=== PATIENT | female | born 1990 | race Caucasian/White ===

== ENCOUNTER 2019-02-23 04:07 | Inpatient (IN) | payer BC ==
[2019-02-23] MEDS ORDERED: Lidocaine 1% 50 ML MDV INJECT PRN (07:40)
[2019-02-23] MEDS ORDERED: Sodium Chloride 0.9% 10 ML Syringe FLUSH PRN (07:40)
[2019-02-23] MEDS ORDERED: Nalbuphine 10 MG/1 ML Vial IVPUSH PRN (07:40)
[2019-02-23] MEDS ORDERED: Oxytocin/Lactated Ringers 10 UNIT/1,000 ML BAG IV SCH ×2 (07:45)
[2019-02-23] MEDS: Lactated Ringers 1,000 ML IV SCH ×3 (08:00→15:00)
--- NOTE | 2019-02-23 09:26 | PCM.LDHP ---
<Anette Huntley - Last Filed: 02/23/19 11:12> L&D History of Present Illness - General Date of Service: 02/23/19 (Kendell is a 28-year-old 2 para 1001 white female is admitted on 02/23/2019 at 39 weeks gestational age for induction of labor. APOLINAR is 03/02/2019.) Admit Problem/Dx: Patient Status Order with Admit Dx/Problem 02/23/19 07:40 Patient Status [ADT] Routine Admission Diagnosis/Problem Admission Diagnosis/Problem 02/23/19 10:04 Induction of Labor Source of Information: Patient, Significant Other History Limitations: Reports: No Limitations - History of Present Illness Introduction:: Kendell is a 28 year-old female 2 para 1001white female who is admitted on 02/23/2019 at 39 weeks gestational age with an APOLINAR of 03/02/2019 for induction of labor. Patient has had a previous vaginal delivery in May of 2012 where she was induced at 39 weeks. She will have an IV in place to begin Pitocin therapy with have monitoring. 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 APOLINAR 03/02/2019 as determined by an ultrasound done at 7-0 weeks on 07/15/2018. This is supported by another ultrasound performed on 10/16/2018 and her LMP on 05/26/2018. Past obstetric history: Patient had menarche at age 15. Cycles every 28 days. No control being used at time of conception. Last menstrual periods started on 05/26/2019 and was definite. 1. Vaginal delivery in May 2012. laboratory testing: Blood type is A +, with negative antibody screening.First labs were HGB was 12.5, Platelets 290. Rubetlla immune. RPR nonreactive. Second trimester labs HBG was 11.0, platelets 255, Diabetes screen was 94. Group B strep negative. Location, : Reports: Abdomen, Lower back Quality: Reports: Ache, Pressure Severity: Moderate Pain Score: 6 (Patient would like an epidural later during laboring process.) Improves with: Reports: Rest Worsens with: Reports: None - Related Data Allergies/Adverse Reactions: Allergies Allergy/AdvReac Type Severity Reaction Status Date / Time amoxicillin Allergy Difficulty Verified 02/23/19 07:39 Swallowing ceclor Allergy Cannot Uncoded 02/23/19 07:39 Remember Home Medications: Home Meds PNV95/Ferrous Fumarate/FA [ Vitamin Tablet] 1 each PO DAILY 02/23/19 [ History] Past Medical History HEENT History: Reports: Impaired Vision Other HEENT History: wears glasses Genitourinary History: Reports: None 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 - Past Surgical History HEENT Surgical History: Reports: Naso-Sinus Surgery, Oral Surgery, Tonsillectomy Other HEENT Surgeries/Procedures: wisdom teeth Female Surgical History: Reports: Endometrial Ablation Social & Family History - Family History Other Family History: Father - alive and well. Mother - alive and well. Paternal grandfather - pancreatic cancer age 80s. Paternal grandmother - unknown cancer age 70s. Maternal grandfather - [place] age 60s. Maternal grandmother - Alive and well. 1 Child - alive and well. - Tobacco Use Smoking Status *Q: Current Every Day Smoker Tobacco Use Within Last Twelve Months: Cigarettes Packs/Tins Daily: 0.2 Used Tobacco, but Quit: No Tobacco Use Comment: Patient normally smokes 1 pack of cigarettes every 2 days. During this she has cut back to 3-4 cigarettes a day. There is no smoking inside of the home, she does go outside. Second Hand Smoke Exposure: No - Caffeine Use Caffeine Use: Reports: None - Alcohol Use Alcohol Use Comment: History of social alcohol use, has not had alcohol during . - Recreational Drug Use Recreational Drug Use: No Drug Use in Last 12 Months: No - Sexual History Sexual History: Reports: Single Partner () - Living Situation & Occupation Social History Comment: Patient lives at home with biological child and step-child. 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 There are no pets at the home. H&P Review of Systems - Review of Systems: Free Text/Narrative: In general patient has no complaints. Baby has been active. General: Reports: No Symptoms HEENT: Reports: No Symptoms Pulmonary: Reports: No Symptoms Cardiovascular: Reports: No Symptoms Gastrointestinal: Reports: No Symptoms Genitourinary: Reports: No Symptoms Musculoskeletal: Reports: No Symptoms Skin: Reports: No Symptoms Psychiatric: Reports: No Symptoms Neurological: Reports: No Symptoms L&D Exam - Exam Exam: See Below - Vital Signs Vital Signs: Last Vital Signs Temp 96.8 F 02/23/19 07:40 Pulse 79 02/23/19 08:33 Resp 16 02/23/19 07:40 BP 121/65 02/23/19 08:33 Pulse Ox Weight: 102.058 kg - OB Specific Fundal Height In cm: 39 Contraction Intensity: Mild to Moderate Movement: Active Heart Tones: Present Heart Tones per Min: 120 Presentation: Vertex - Zheng Score Zheng Score Dilation: 3-4 cm - Exam General: Alert, Oriented HEENT: PERRLA, Conjunctiva Clear, EACs Clear, EOMI, Hearing Intact, Mucosa Moist & [place], Nares Patent, Normal Nasal Septum, Posterior Pharynx Clear, TMs Clear Neck: Supple, Trachea Midline Lungs: Clear to Auscultation, Normal Respiratory Effort Cardiovascular: Regular Rate, Regular Rhythm GI/Abdominal Exam: Normal Bowel Sounds, Soft, Non-Tender, No Organomegaly, No Distention, No Abnormal Bruit, No Mass, Pelvis Stable Genitourinary: Normal external exam, Normal bimanual exam, Normal speculum exam Back Exam: Normal Inspection, Full Range of Motion Extremities: Normal Inspection, Normal Range of Motion, Non-Tender, No Pedal Edema, Normal Capillary Refill Skin: Warm, Dry, Intact Neurological: Cranial Nerves Intact, Reflexes Equal Bilateral Psychiatric: Alert, Normal Affect, Normal Mood - Patient Data Lab Results Last 24 hrs: Laboratory Results - last 24 hr 02/23/19 Range/Units 07:52 WBC 15.58 H (3.98-10.04) K/mm3 RBC 4.04 (3.98-5.22) M/mm3 Hgb 12.1 (11.2-15.7) gm/L Hct 35.8 (34.1-44.9) % MCV 88.6 (79.4-94.8) fl MCH 30.0 (25.6-32.2) pg MCHC 33.8 (32.2-35.5) g/dl RDW Std Deviation 45.4 (36.4-46.3) fL Plt Count 252 (182-369) K/mm3 MPV 9.1 L (9.4-12.3) fl Neut % (Auto) 76.2 H (34.0-71.1) % Lymph % (Auto) 16.3 L (19.3-51.7) % Hendricks % (Auto) 5.6 (4.7-12.5) % Eos % (Auto) 1.1 (0.7-5.8) Baso % (Auto) 0.1 (0.1-1.2) % Neut # (Auto) 11.88 H (1.56-6.13) K/mm3 Lymph # (Auto) 2.54 (1.18-3.74) K/mm3 Hendricks # (Auto) 0.87 H (0.24-0.36) K/mm3 Eos # (Auto) 0.17 (0.04-0.36) K/mm3 Baso # (Auto) 0.01 (0.01-0.08) K/mm3 Manual Slide Review Normal smear Result Diagrams: 02/23/19 07:52 Problem List Initiated/Reviewed/Updated: Yes Orders Last 24hrs: Active Orders 24 hr Category Date Time Status Patient Status [ADT] Routine ADT 02/23/19 07:40 Active Activity as Tolerated [RC] PFP Care 02/23/19 07:40 Active Communication Order [RC] ASDIRECTED Care 02/23/19 07:40 Active Notify Provider [RC] PFP Care 02/23/19 07:40 Active Notify Provider [RC] PRN Care 02/23/19 07:40 Active Peripheral IV Care [RC] . DIRECTED Care 02/23/19 07:40 Active Vital Signs [RC] PER UNIT ROUTINE Care 02/23/19 07:40 Active Regular Diet [DIET] Diet 02/23/19 Breakfast Active RAPID PLASMA REAGIN,RPR [CHEM] Routine Lab 02/23/19 07:52 Received Lactated Ringers [Ringers, Lactated] 1,000 ml Med 02/23/19 07:45 Active IV ASDIRECTED Lidocaine 1% [Xylocaine 1%] Med 02/23/19 07:40 Active 50 ml INJECT ONETIME PRN Nalbuphine [Nubain] Med 02/23/19 07:40 Active 10 mg IVPUSH Q2H PRN Oxytocin/Lactated Ringers [Pitocin in LR 10 Units/1,000 Med 02/23/19 07:45 Active ML] 10 unit in 1,000 ml IV .CONTINUOUS Oxytocin/Lactated Ringers [Pitocin in LR 10 Units/1,000 Med 02/23/19 07:45 Active ML] 10 unit in 1,000 ml IV TITRATE Sodium Chloride 0.9% [Saline Flush] Med 02/23/19 07:40 Active 10 ml FLUSH ASDIRECTED PRN Electronic Heart Tones Ext w TOCO [WOMSER] Ot 02/23/19 07:40 Ordered Routine Electronic Heart Tones Internal [WOMSER] Per Unit Ot 02/23/19 07:40 Ordered Routine Peripheral IV Insertion Adult [OM.PC] Routine Ot 02/23/19 07:40 Ordered Resuscitation Status Routine Resus Stat 02/23/19 07:40 Ordered Medication Orders Lactated Ringer's (Ringers, Lactated) 1,000 mls @ 100 mls/hr IV ASDIRECTED MANUELITO Last Admin: 02/23/19 08:00 Dose: 100 mls/hr Oxytocin/Lactated Ringer's (Pitocin In Lr 10 Units/1,000 Ml) 10 unit in 1,000 mls @ 12 mls/hr IV TITRATE MANUELITO; Protocol Last Titration: 02/23/19 08:51 Dose: 6 munits/min, 36 mls/hr Titration: 02/23/19 08:30 Dose: 4 munits/min, 24 mls/hr Admin: 02/23/19 08:05 Dose: 2 munits/min, 12 mls/hr Oxytocin/Lactated Ringer's (Pitocin In Lr 10 Units/1,000 Ml) 10 unit in 1,000 mls @ 500 mls/hr IV .CONTINUOUS MANUELITO Lidocaine HCl (Xylocaine 1%) 50 ml INJECT ONETIME PRN PRN Reason: Breakthrough Pain Nalbuphine HCl (Nubain) 10 mg IVPUSH Q2H PRN PRN Reason: Pain Sodium Chloride (Saline Flush) 10 ml FLUSH ASDIRECTED PRN PRN Reason: Keep Vein Open Assessment/Plan Comment:: 1. 39 weeks intrauterine admitted for induction of labor. 2. History of prvious vaginal delivery in May 2012. 3. Group B strep screen negative. 4. Patient does not plan to breastfeed but would like to pump when she gets home , she is interested in talking to a counselor. 5. Epidural analgesia in labor. 6. Rubella immune 7. RPR nonreactive Plan: 1. We will attempt induction of labor with Pitocin and rupture of membranes. 2. Epidural when necessary for analgesia per patient desire. 3. IV access 4. Near continuous electronic heart rate monitoring during labor. 4. Anticipate normal spontaneous vaginal delivery. <Matthew Weaver - Last Filed: 02/23/19 18:44> L&D History of Present Illness - General Admit Problem/Dx: Patient Status Order with Admit Dx/Problem 02/23/19 07:40 Patient Status [ADT] Routine Admission Diagnosis/Problem Admission Diagnosis/Problem H&P Review of Systems - Review of Systems: Review Of Systems: See Below L&D Exam - Exam Exam: See Below - Vital Signs Vital Signs: Last Vital Signs Temp 36.0 C 02/23/19 07:40 Pulse 81 02/23/19 13:31 Resp 16 02/23/19 10:23 BP 100/54 L 02/23/19 13:31 Pulse Ox 100 02/23/19 13:00 - Patient Data Lab Results Last 24 hrs: Laboratory Results - last 24 hr 02/23/19 Range/Units 07:52 WBC 15.58 H (3.98-10.04) K/mm3 RBC 4.04 (3.98-5.22) M/mm3 Hgb 12.1 (11.2-15.7) gm/L Hct 35.8 (34.1-44.9) % MCV 88.6 (79.4-94.8) fl MCH 30.0 (25.6-32.2) pg MCHC 33.8 (32.2-35.5) g/dl RDW Std Deviation 45.4 (36.4-46.3) fL Plt Count 252 (182-369) K/mm3 MPV 9.1 L (9.4-12.3) fl Neut % (Auto) 76.2 H (34.0-71.1) % Lymph % (Auto) 16.3 L (19.3-51.7) % Hendricks % (Auto) 5.6 (4.7-12.5) % Eos % (Auto) 1.1 (0.7-5.8) Baso % (Auto) 0.1 (0.1-1.2) % Neut # (Auto) 11.88 H (1.56-6.13) K/mm3 Lymph # (Auto) 2.54 (1.18-3.74) K/mm3 Hendricks # (Auto) 0.87 H (0.24-0.36) K/mm3 Eos # (Auto) 0.17 (0.04-0.36) K/mm3 Baso # (Auto) 0.01 (0.01-0.08) K/mm3 Manual Slide Review Normal smear Result Diagrams: 02/23/19 07:52 Problem List Initiated/Reviewed/Updated: Yes Orders Last 24hrs: Active Orders 24 hr Category Date Time Status Patient Status [ADT] Routine ADT 02/23/19 07:40 Active Activity as Tolerated [RC] PFP Care 02/23/19 07:40 Active Communication Order [RC] ASDIRECTED Care 02/23/19 07:40 Active Insert [place] Catheter [Insert Urinary Catheter] [OM.PC] Care 02/23/19 14:30 Ordered Q24H Notify Provider [RC] ASDIRECTED Care 02/23/19 10:07 Active Notify Provider [RC] PFP Care 02/23/19 07:40 Active Notify Provider [RC] PRN Care 02/23/19 07:40 Active Peripheral IV Care [RC] Q2HR Care 02/23/19 07:40 Active Urinary Catheter Assessment [RC] ASDIRECTED Care 02/23/19 14:30 Active Urinary Catheter Removal [RC] Per Unit Routine Care 02/23/19 14:30 Active Vital Signs [RC] PER UNIT ROUTINE Care 02/23/19 07:40 Active Regular Diet [DIET] Diet 02/23/19 Breakfast Active RAPID PLASMA REAGIN,RPR [CHEM] Routine Lab 02/23/19 07:52 Received Bupivacaine/fentaNYL/NS [fentaNYL/Bupivacaine/NS 2 MCG- Med 02/23/19 10:07 Active 0.125% 100 ML] 100 ml EPIDUR ASDIRECTED PRN Lactated Ringers [Ringers, Lactated] 1,000 ml Med 02/23/19 07:45 Active IV ASDIRECTED Lidocaine 1% [Xylocaine 1%] Med 02/23/19 07:40 Active 50 ml INJECT ONETIME PRN Nalbuphine [Nubain] Med 02/23/19 07:40 Active 10 mg IVPUSH Q2H PRN Oxytocin/Lactated Ringers [Pitocin in LR 10 Units/1,000 Med 02/23/19 07:45 Active ML] 10 unit in 1,000 ml IV .CONTINUOUS Oxytocin/Lactated Ringers [Pitocin in LR 10 Units/1,000 Med 02/23/19 07:45 Active ML] 10 unit in 1,000 ml IV TITRATE Sodium Chloride 0.9% [Saline Flush] Med 02/23/19 07:40 Active 10 ml FLUSH ASDIRECTED PRN diphenhydrAMINE [Benadryl] Med 02/23/19 10:07 Active 25 mg IVPUSH Q6H PRN ePHEDrine [ePHEDrine sulfate] Med 02/23/19 10:07 Active 5 mg IVPUSH ASDIRECTED PRN fentaNYL [Sublimaze] Med 02/23/19 10:07 Active 100 mcg EPIDUR Q3H PRN Electronic Heart Tones Ext w TOCO [WOMSER] Oth 02/23/19 07:40 Ordered Routine Electronic Heart Tones Internal [WOMSER] Per Unit Oth 02/23/19 07:40 Ordered Routine Peripheral IV Insertion Adult [OM.PC] Routine Oth 02/23/19 07:40 Ordered Resuscitation Status Routine Resus Stat 02/23/19 07:40 Ordered Medication Orders Diphenhydramine HCl (Benadryl) 25 mg IVPUSH Q6H PRN PRN Reason: pruritis Ephedrine Sulfate (Ephedrine Sulfate) 5 mg IVPUSH ASDIRECTED PRN PRN Reason: Hypotension Fentanyl (Sublimaze) 100 mcg EPIDUR Q3H PRN PRN Reason: Pain Last Admin: 02/23/19 12:56 Dose: 100 mcg Fentanyl/Bupivacaine HCl (Fentanyl/Bupivacaine/Ns 2 Mcg-0.125% 100 Ml) 100 ml EPIDUR ASDIRECTED PRN PRN Reason: Pain Last Admin: 02/23/19 12:57 Dose: 100 ml Lactated Ringer's (Ringers, Lactated) 1,000 mls @ 100 mls/hr IV ASDIRECTED MANUELITO Last Admin: 02/23/19 15:00 Dose: 125 mls/hr Infusion: 02/23/19 14:05 Dose: 999 mls/hr Admin: 02/23/19 13:04 Dose: 999 mls/hr Infusion: 02/23/19 12:37 Dose: 250 mls/hr Infusion: 02/23/19 12:00 Dose: 999 mls/hr Admin: 02/23/19 08:00 Dose: 100 mls/hr Oxytocin/Lactated Ringer's (Pitocin In Lr 10 Units/1,000 Ml) 10 unit in 1,000 mls @ 12 mls/hr IV TITRATE MANUELITO; Protocol Last Titration: 02/23/19 17:25 Dose: 12 munits/min, 72 mls/hr Titration: 02/23/19 16:15 Dose: 10 munits/min, 60 mls/hr Titration: 02/23/19 15:30 Dose: 12 munits/min, 72 mls/hr Titration: 02/23/19 11:45 Dose: 10 munits/min, 60 mls/hr Titration: 02/23/19 10:30 Dose: 8 munits/min, 48 mls/hr Titration: 02/23/19 08:51 Dose: 6 munits/min, 36 mls/hr Titration: 02/23/19 08:30 Dose: 4 munits/min, 24 mls/hr Admin: 02/23/19 08:05 Dose: 2 munits/min, 12 mls/hr Oxytocin/Lactated Ringer's (Pitocin In Lr 10 Units/1,000 Ml) 10 unit in 1,000 mls @ 500 mls/hr IV .CONTINUOUS MANUELITO Lidocaine HCl (Xylocaine 1%) 50 ml INJECT ONETIME PRN PRN Reason: Breakthrough Pain Nalbuphine HCl (Nubain) 10 mg IVPUSH Q2H PRN PRN Reason: Pain Sodium Chloride (Saline Flush) 10 ml FLUSH ASDIRECTED PRN PRN Reason: Keep Vein Open
[2019-02-23] MEDS ORDERED: ePHEDrine 50 MG/ML SDV IVPUSH PRN (10:07)
[2019-02-23] MEDS ORDERED: diphenhydrAMINE 50 MG/ML SDV IVPUSH PRN (10:07)
[2019-02-23] MEDS ORDERED: fentaNYL 100 MCG/2 ML SDV EPIDUR PRN (10:07)
[2019-02-23] MEDS ORDERED: Bupivacaine/fentaNYL/NS 100 ML Bag EPIDUR PRN (10:07)
--- NOTE | 2019-02-23 10:23 | PCM.PREANE ---
Preanesthetic Assessment - Procedure Proposed Procedure: kizzy - Anesthesia/Transfusion/Family Hx Anesthesia History: Prior Anesthesia Without Reaction Family History of Anesthesia Reaction: No Transfusion History: No Prior Transfusion(s) - Review of Systems General: No Symptoms Pulmonary: No Symptoms Cardiovascular: No Symptoms Gastrointestinal: No Symptoms Neurological: No Symptoms Other: Reports: None - Physical Assessment Pulse: 79 Respiratory Rate: 16 Blood Pressure: 121/65 Vital Signs: Last Vital Signs Temp 96.8 F 02/23/19 07:40 Pulse 79 02/23/19 08:33 Resp 16 02/23/19 07:40 BP 121/65 02/23/19 08:33 Pulse Ox Height: 5 ft 6 in Weight: 102.058 kg ASA Class: 2 Mental Status: Alert & Oriented x3 Airway Class: Mallampati = 1 Dentition: Reports: Normal Dentition Thyro-Mental Finger Breadths: 3 Mouth Opening Finger Breadths: 3 ROM/Head Extension: Full Lungs: Clear to Auscultation, Normal Respiratory Effort Cardiovascular: Regular Rate, Regular Rhythm - Lab Values: Laboratory Last Values WBC 15.58 K/mm3 (3.98-10.04) H 02/23/19 07:52 RBC 4.04 M/mm3 (3.98-5.22) 02/23/19 07:52 Hgb 12.1 gm/L (11.2-15.7) 02/23/19 07:52 Hct 35.8 % (34.1-44.9) 02/23/19 07:52 MCV 88.6 fl (79.4-94.8) 02/23/19 07:52 MCH 30.0 pg (25.6-32.2) 02/23/19 07:52 MCHC 33.8 g/dl (32.2-35.5) 02/23/19 07:52 RDW Std Deviation 45.4 fL (36.4-46.3) 02/23/19 07:52 Plt Count 252 K/mm3 (182-369) 02/23/19 07:52 MPV 9.1 fl (9.4-12.3) L 02/23/19 07:52 Neut % (Auto) 76.2 % (34.0-71.1) H 02/23/19 07:52 Lymph % (Auto) 16.3 % (19.3-51.7) L 02/23/19 07:52 Whitman % (Auto) 5.6 % (4.7-12.5) 02/23/19 07:52 Eos % (Auto) 1.1 (0.7-5.8) 02/23/19 07:52 Baso % (Auto) 0.1 % (0.1-1.2) 02/23/19 07:52 Neut # (Auto) 11.88 K/mm3 (1.56-6.13) H 02/23/19 07:52 Lymph # (Auto) 2.54 K/mm3 (1.18-3.74) 02/23/19 07:52 Whitman # (Auto) 0.87 K/mm3 (0.24-0.36) H 02/23/19 07:52 Eos # (Auto) 0.17 K/mm3 (0.04-0.36) 02/23/19 07:52 Baso # (Auto) 0.01 K/mm3 (0.01-0.08) 02/23/19 07:52 Manual Slide Review Normal smear 02/23/19 07:52 - Allergies Allergies/Adverse Reactions: Allergies Allergy/AdvReac Type Severity Reaction Status Date / Time amoxicillin Allergy Difficulty Verified 02/23/19 07:39 Swallowing ceclor Allergy Cannot Uncoded 02/23/19 07:39 Remember - Blood Blood Available: No - Acknowledgements Anesthesia Type Planned: Epidural Pt an Appropriate Candidate for the Planned Anesthesia: Yes Alternatives and Risks of Anesthesia Discussed w Pt/Guardian: Yes Pt/Guardian Understands and Agrees with Anesthesia Plan: Yes PreAnesthesia Questionnaire HEENT History: Reports: Impaired Vision Other HEENT History: wears glasses Cardiovascular History: Reports: None Respiratory History: Reports: None Gastrointestinal History: Reports: GERD (occasionally with preg) Genitourinary History: Reports: None [employer]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 Musculoskeletal History: Reports: None Oncologic (Cancer) History: Reports: None - Past Surgical History HEENT Surgical History: Reports: Naso-Sinus Surgery, Oral Surgery, Tonsillectomy Other HEENT Surgeries/Procedures: wisdom teeth Female Surgical History: Reports: Endometrial Ablation - SUBSTANCE USE Smoking Status *Q: Current Every Day Smoker Tobacco Use Within Last Twelve Months: Cigarettes Second Hand Smoke Exposure: No Days Per Week of Alcohol Use: 0 Recreational Drug Use History: No - HOME MEDS Home Medications: Home Meds PNV95/Ferrous Fumarate/FA [ Vitamin Tablet] 1 each PO DAILY 02/23/19 [ History] - CURRENT (IN HOUSE) MEDS Current Meds: Current Medications Diphenhydramine HCl (Benadryl) 25 mg IVPUSH Q6H PRN PRN Reason: pruritis Ephedrine Sulfate (Ephedrine Sulfate) 5 mg IVPUSH ASDIRECTED PRN PRN Reason: Hypotension Fentanyl (Sublimaze) 100 mcg EPIDUR Q3H PRN PRN Reason: Pain Fentanyl/Bupivacaine HCl (Fentanyl/Bupivacaine/Ns 2 Mcg-0.125% 100 Ml) 100 ml EPIDUR ASDIRECTED PRN PRN Reason: Pain Lactated Ringer's (Ringers, Lactated) 1,000 mls @ 100 mls/hr IV ASDIRECTED MANUELITO Last Admin: 02/23/19 08:00 Dose: 100 mls/hr Oxytocin/Lactated Ringer's (Pitocin In Lr 10 Units/1,000 Ml) 10 unit in 1,000 mls @ 12 mls/hr IV TITRATE MANUELITO; Protocol Last Titration: 02/23/19 08:51 Dose: 6 munits/min, 36 mls/hr Oxytocin/Lactated Ringer's (Pitocin In Lr 10 Units/1,000 Ml) 10 unit in 1,000 mls @ 500 mls/hr IV .CONTINUOUS MANUELITO Lidocaine HCl (Xylocaine 1%) 50 ml INJECT ONETIME PRN PRN Reason: Breakthrough Pain Nalbuphine HCl (Nubain) 10 mg IVPUSH Q2H PRN PRN Reason: Pain Sodium Chloride (Saline Flush) 10 ml FLUSH ASDIRECTED PRN PRN Reason: Keep Vein Open
[2019-02-23] MEDS ORDERED: Witch Hazel Medicated Pads 40/Jar TOP PRN (18:51)
[2019-02-23] MEDS ORDERED: Docusate Sodium 100 MG Cap PO PRN (18:51)
[2019-02-23] MEDS ORDERED: Benzocaine/Menthol 20%-0.5% Spray 56 GM Canister TOP PRN (18:51)
[2019-02-23] MEDS ORDERED: Lanolin 100% Cream 7 GM Tube TOP PRN (18:51)
--- NOTE | 2019-02-23 18:51 | PCM.SN ---
- Free Text/Narrative Note: Kendell is a 28-year-old 2 now para 2002 white female was admitted for elective induction of labor this a.m. She is 39-0/7 weeks gestational age with an APOLINAR of 03/03/2019. Induction was started with Pitocin and augmented with artificial rupture membranes. She made relatively rapid progress. She had an epidural for labor analgesia. She did have some moderate variable decelerations which resolved at the end of the labor. She delivered a viable, virgen, male with Apgars of 8 and 9, a length of 20.5 inches and a weight of 3470 g (7 pounds 10.4 ounces) in a right occiput anterior position. There is no evidence of nuchal cord, knots in the cord or shoulder cord at the time of delivery. The patient delivered without any perineal or vaginal lacerations. Baby was placed on mom's abdomen. Pitocin was started after delivery of the baby. Cord was locked pulsate for 1-2 minutes and then was clamped 2 and cut by the baby's father. Cord blood was obtained. The umbilical cord had 3 vessels. The placenta delivered in a Melvin reason to patient, appeared intact and complete and was discarded per patient desire. Estimated blood loss was 200 mL. Condition: Good. Patient plans to pump and bottle feed breast milk.
[2019-02-23] MEDS: Acetaminophen 325 MG Tab PO PRN (20:42)
[2019-02-24] MEDS ORDERED: Bupivacaine 0.25% 10 ML SDV ONE
[2019-02-24] MEDS: Ibuprofen 600 MG Tab PO PRN ×4 (06:46→21:27)
--- NOTE | 2019-02-24 10:15 | PCM.SN ---
- Free Text/Narrative Note: note: Patient is doing well in the period. Minimal lochia, voiding well, ambulated without problems. Nursing without concerns. Patient is afebrile, vital signs are stable Abdomen is flat, with no reported tenderness. Legs are nontender. Assessment: recovery going well. Plan: Routine care. Patient be discharged home within the next 24-48 hours.
--- NOTE | 2019-02-24 13:23 | PCM48HPAN ---
Post Anesthesia Note - EVALUATION WITHIN 48HRS OF ANESTHETIC Vital Signs in Normal Range: Yes Patient Participated in Evaluation: Yes Respiratory Function Stable: Yes Airway Patent: Yes Cardiovascular Function Stable: Yes Hydration Status Stable: Yes Pain Control Satisfactory: Yes Nausea and Vomiting Control Satisfactory: Yes Pulse Rate: 87 Resp Rate: 14 Temperature: 36.5 C Blood Pressure: 133/76 - COMMENTS/OBSERVATIONS Free Text/Narrative:: some tingling in L foot -
[2019-02-24] MEDS: Acetaminophen 325 MG Tab PO PRN (18:56)
[2019-02-25] MEDS: Ibuprofen 600 MG Tab PO PRN ×2 (03:51→08:46)
--- NOTE | 2019-02-25 07:13 | PCM.DCSUM1 ---
Discharge Summary - Hospital Course Free Text/Narrative:: Kendell is a 28-year-old 2 now para 2001 white female was admitted for elective induction of labor the a.m. of 02/23/2019. She was 39-0/7 weeks gestational age with an APOLINAR of 03/03/2019. Induction was started with Pitocin and augmented with artificial rupture membranes. She made relatively rapid progress. She had an epidural for labor analgesia. She did have some moderate variable decelerations which resolved at the end of the labor. She delivered a viable, virgen, male infant with Apgars of 8 and 9, a length of 20.5 inches and a weight of 3470 g (7 pounds 10.4 ounces) in a right occiput anterior position. There is no evidence of nuchal cord, knots in the cord or shoulder cord at the time of delivery. The patient delivered without any perineal or vaginal lacerations. Baby was placed on mom's abdomen. Pitocin was started after delivery of the baby. Cord was locked pulsate for 1-2 minutes and then was clamped 2 and cut by the baby's father. Cord blood was obtained. The umbilical cord had 3 vessels. The placenta delivered in a Melvin reason to patient, appeared intact and complete and was discarded per patient desire. Estimated blood loss was 200 mL. Condition: Good. Patient plans to pump and bottle feed breast milk. patient is doing very well. She is ambulating well, has minimal lochia and is voiding without problems. She is breast-feeding without concerns. She is desiring discharge home. Diagnosis: Stroke: No - Discharge Data Discharge Date: 02/25/19 Discharge Disposition: Home, Self-Care 01 Condition: Good - Patient Instructions Diet: Regular Diet as Tolerated (High-fiber, nursing diet and increase calories and calcium as recommended) Activity: As Tolerated (No intercourse or tampons until bleeding resolves) Driving: May Drive Today Showering/Bathing: May Shower (may take a bath) Notify Provider of: Fever, Increased Pain, Swelling and Redness, Nausea and/or Vomiting - Discharge Plan Home Medications: Home Meds PNV95/Ferrous Fumarate/FA [ Vitamin Tablet] 1 each PO DAILY 02/23/19 [ History] Acetaminophen [Tylenol] 650 mg PO Q4H PRN tablet 02/25/19 [Rx] Ibuprofen [Motrin] 600 mg PO Q4H PRN tablet 02/25/19 [Rx] Patient Handouts: Steps to Quit Smoking Referrals: Matthew Weaver MD [Primary Care Provider] - - Discharge Summary/Plan Comment DC Time >30 min.: No Discharge Summary/Plan Comment: Discharge instructions: 1. Discharge home 2. Diet, activity and follow-up discussed with patient. Recommend nursing diet with increased calories and calcium. 3. Precautions given concern increased pain, bleeding, temperature, signs/ symptoms of DVT/PE. 4. Medications per home medication was printed, discussed with and given to the patient. 5. Return to clinic-Dr. Weaver[facility] in 2 weeks. Diagnosis: Term -delivered Condition: Good - Patient Data Vitals - Most Recent: Last Vital Signs Temp 36.4 C 02/25/19 03:42 Pulse 70 02/25/19 03:42 Resp 14 02/25/19 03:42 BP 126/90 02/25/19 03:42 Pulse Ox 100 02/25/19 03:42 Weight - Most Recent: 102.058 kg Lab Results - Last 24 hrs: Laboratory Results - last 24 hr 02/23/19 Range/Units 07:52 RPR Non-reactive (NONREACTIVE) Med Orders - Current: Current Medications Acetaminophen (Tylenol) 650 mg PO Q4H PRN PRN Reason: mild pain or fever Last Admin: 02/24/19 18:56 Dose: 650 mg Benzocaine/Menthol (Dermoplast Pain Relief [place]) 0 gm TOP ASDIRECTED PRN PRN Reason: Perineal Comfort Measure Docusate Sodium (Colace) 100 mg PO BID PRN PRN Reason: Constipation Emollient Ointment (Lansinoh Hpa) 0 gm TOP ASDIRECTED PRN PRN Reason: Sore Nipples Ibuprofen (Motrin) 600 mg PO Q4H PRN PRN Reason: Mild pain or fever Last Admin: 02/25/19 03:51 Dose: 600 mg Witch Jordana (Tucks) 1 pad TOP ASDIRECTED PRN PRN Reason: Pain Discontinued Medications Diphenhydramine HCl (Benadryl) 25 mg IVPUSH Q6H PRN PRN Reason: pruritis Ephedrine Sulfate (Ephedrine Sulfate) 5 mg IVPUSH ASDIRECTED PRN PRN Reason: Hypotension Fentanyl (Sublimaze) 100 mcg EPIDUR Q3H PRN PRN Reason: Pain Last Admin: 02/23/19 12:56 Dose: 100 mcg Fentanyl/Bupivacaine HCl (Fentanyl/Bupivacaine/Ns 2 Mcg-0.125% 100 Ml) 100 ml EPIDUR ASDIRECTED PRN PRN Reason: Pain Last Admin: 02/23/19 12:57 Dose: 100 ml Lactated Ringer's (Ringers, Lactated) 1,000 mls @ 100 mls/hr IV ASDIRECTED MANULEITO Last Admin: 02/23/19 15:00 Dose: 125 mls/hr Oxytocin/Lactated Ringer's (Pitocin In Lr 10 Units/1,000 Ml) 10 unit in 1,000 mls @ 12 mls/hr IV TITRATE MANUELITO; Protocol Last Titration: 02/23/19 18:32 Dose: 500 mls/hr Oxytocin/Lactated Ringer's (Pitocin In Lr 10 Units/1,000 Ml) 10 unit in 1,000 mls @ 500 mls/hr IV .CONTINUOUS MANUELITO Lidocaine HCl (Xylocaine 1%) 50 ml INJECT ONETIME PRN PRN Reason: Breakthrough Pain Nalbuphine HCl (Nubain) 10 mg IVPUSH Q2H PRN PRN Reason: Pain Sodium Chloride (Saline Flush) 10 ml FLUSH ASDIRECTED PRN PRN Reason: Keep Vein Open
--- NOTE | 2019-02-25 10:38 | PCM48HPAN ---
Post Anesthesia Note - EVALUATION WITHIN 48HRS OF ANESTHETIC Vital Signs in Normal Range: Yes Patient Participated in Evaluation: Yes Respiratory Function Stable: Yes Airway Patent: Yes Cardiovascular Function Stable: Yes Hydration Status Stable: Yes Pain Control Satisfactory: Yes Nausea and Vomiting Control Satisfactory: Yes Mental Status Recovered: Yes
== END 2019-02-25 12:15 | disposition home or self-care (01) | DRG 560 ==
LOC: JD.OB 07:01 → OBSVTOIN 18:28 → JD.OB 18:28
PROVIDERS: ADMIT Obstetrics & Gynecology; ATTEND Obstetrics & Gynecology
PROC: 10E0XZZ Delivery of Products of Conception, External Approach (ICD-10-PCS; principal; 2019-02-23)
PROC: 3E033VJ Introduction of Other Hormone into Peripheral Vein, Percutaneous Approach (ICD-10-PCS; 2019-02-23)
PROC: 10907ZC Drainage of Amniotic Fluid, Therapeutic from Products of Conception, Via Natural or Artificial Opening (ICD-10-PCS; 2019-02-23)
DX: O99.334 Smoking (tobacco) complicating childbirth (principal); O76 Abnormality in fetal heart rate and rhythm complicating labor and delivery; F17.210 Nicotine dependence, cigarettes, uncomplicated; Z3A.39 39 weeks gestation of pregnancy; Z37.0 Single live birth
CPT/HCPCS: 01967; 36415; 51702; 59025; 59409; 85025; 86592; A9270-GY; J2590; J3010; J3490; J7120

== ENCOUNTER 2019-06-19 07:03 | Day surgery (SDC) | payer BC ==
[~2019-06-19 07:03] MED LIST: Lactated Ringers 1,000 ML IV SCH; Lidocaine 1%/Sod Bicarbonate in NS 8.4% 1 ML Syringe IDERM PRN; Sodium Chloride 0.9% 10 ML Syringe FLUSH PRN
[2019-06-19] MEDS ORDERED: Lidocaine 1% 4 ML ONE (07:11)
[2019-06-19] MEDS ORDERED: Propofol 200 MG/20 ML SDV ONE (07:11)
[2019-06-19] MEDS ORDERED: Ondansetron 4 MG/2 ML SDV ONE (07:11)
[2019-06-19] MEDS ORDERED: Rocuronium 50 MG/5 ML Vial ONE (07:11)
[2019-06-19] MEDS ORDERED: ceFAZolin 1 GM Vial ONE (07:11)
[2019-06-19] MEDS ORDERED: Lactated Ringers 1,000 ML ONE (07:11)
[2019-06-19] MEDS ORDERED: Ketorolac 30 MG/ML SDV ONE (07:12)
[2019-06-19] MEDS ORDERED: Dexamethasone 4 MG/ML 5 ML MDV ONE (07:12)
[2019-06-19] MEDS ORDERED: fentaNYL 250 MCG/5 ML SDV ONE (07:12)
[2019-06-19] MEDS ORDERED: Midazolam 1 MG/ML 2 ML SDV ONE (07:12)
[2019-06-19] MEDS ORDERED: Bupivacaine 0.5% 30 ML SDV ONE (07:28)
[2019-06-19] MEDS ORDERED: Lidocaine 1% with EPINEPHrine 1:100,000 20 ML MDV ONE (07:28)
[2019-06-19] MEDS ORDERED: Sodium Chloride 0.9% 50 ML SDV ONE (07:29)
[2019-06-19] MEDS ORDERED: HYDROmorphone 0.5 MG/0.5 ML Syringe ONE (08:28)
[2019-06-19] MEDS ORDERED: Neostigmine Methylsulfate 1 MG/ML 5 ML Syringe ONE (08:35)
[2019-06-19] MEDS ORDERED: Albuterol 6.7 GM Inhaler INH ONE (08:41)
--- NOTE | 2019-06-19 09:11 | PCM.PREANE ---
Preanesthetic Assessment - Anesthesia/Transfusion/Family Hx Anesthesia History: Prior Anesthesia Without Reaction Family History of Anesthesia Reaction: No Transfusion History: No Prior Transfusion(s) - Review of Systems General: No Symptoms Pulmonary: No Symptoms (Smoker less than 0.5 ppd) Cardiovascular: No Symptoms Gastrointestinal: No Symptoms Neurological: No Symptoms Other: Reports: None - Physical Assessment NPO Status Date: 06/18/19 NPO Status Time: 21:00 Vital Signs: Last Vital Signs Temp 36.9 C 06/19/19 08:57 Pulse 76 06/19/19 08:57 Resp 10 L 06/19/19 08:57 BP 123/60 06/19/19 08:57 Pulse Ox 100 06/19/19 09:08 Height: 1.68 m Weight: 95.254 kg ASA Class: 2 Mental Status: Alert & Oriented x3 Airway Class: Mallampati = 2 Dentition: Reports: Normal Dentition Thyro-Mental Finger Breadths: 3 Mouth Opening Finger Breadths: 3 ROM/Head Extension: Full Lungs: Clear to Auscultation, Normal Respiratory Effort, Decreased Breath Sounds Cardiovascular: Regular Rate, Regular Rhythm - Lab Values: Laboratory Last Values WBC 11.03 K/mm3 (3.98-10.04) H 06/17/19 10:44 RBC 5.02 M/mm3 (3.98-5.22) 06/17/19 10:44 Hgb 14.6 gm/dl (11.2-15.7) D 06/17/19 10:44 Hct 43.9 % (34.1-44.9) 06/17/19 10:44 MCV 87.5 fl (79.4-94.8) 06/17/19 10:44 MCH 29.1 pg (25.6-32.2) 06/17/19 10:44 MCHC 33.3 g/dl (32.2-35.5) 06/17/19 10:44 RDW Std Deviation 42.0 fL (36.4-46.3) 06/17/19 10:44 Plt Count 353 K/mm3 (182-369) D 06/17/19 10:44 MPV 9.5 fl (9.4-12.3) 06/17/19 10:44 Neut % (Auto) 64.0 % (34.0-71.1) 06/17/19 10:44 Lymph % (Auto) 27.7 % (19.3-51.7) 06/17/19 10:44 [place] % (Auto) 5.5 % (4.7-12.5) 06/17/19 10:44 Eos % (Auto) 2.4 (0.7-5.8) 06/17/19 10:44 Baso % (Auto) 0.2 % (0.1-1.2) 06/17/19 10:44 Neut # (Auto) 7.07 K/mm3 (1.56-6.13) H 06/17/19 10:44 Lymph # (Auto) 3.05 K/mm3 (1.18-3.74) 06/17/19 10:44 [place] # (Auto) 0.61 K/mm3 (0.24-0.36) H 06/17/19 10:44 Eos # (Auto) 0.26 K/mm3 (0.04-0.36) 06/17/19 10:44 Baso # (Auto) 0.02 K/mm3 (0.01-0.08) 06/17/19 10:44 Creatinine 0.7 mg/dL (0.55-1.02) 06/17/19 10:44 Est Cr Clr Drug Dosing TNP 06/17/19 10:44 Estimated GFR (MDRD) > 60 mL/min (>60) 06/17/19 10:44 Urine Color Yellow (Yellow) 06/17/19 10:44 Urine Appearance Clear (Clear) 06/17/19 10:44 Urine pH 7.0 (5.0-8.0) 06/17/19 10:44 Ur Specific [place] 1.015 (1.005-1.030) 06/17/19 10:44 Urine Protein Negative (Negative) 06/17/19 10:44 Urine Glucose (UA) Negative (Negative) 06/17/19 10:44 Urine Ketones Negative (Negative) 06/17/19 10:44 Urine Occult Blood Negative (Negative) 06/17/19 10:44 Urine Nitrite Negative (Negative) 06/17/19 10:44 Urine Bilirubin Negative (Negative) 06/17/19 10:44 Urine Urobilinogen 0.2 (0.2-1.0) 10/23/19 10:44 Ur Leukocyte Esterase Negative (Negative) 06/17/19 10:44 Urine HCG, Qual Negative (NEGATIVE) 06/17/19 10:44 Blood Type A POSITIVE 06/17/19 10:44 Gel Antibody Screen Negative 06/17/19 10:44 - Allergies Allergies/Adverse Reactions: Allergies Allergy/AdvReac Type Severity Reaction Status Date / Time amoxicillin Allergy Difficulty Verified 06/19/19 07:55 Swallowing ceclor Allergy Cannot Uncoded 06/18/19 14:53 Remember - Anesthesia Plan Pre-Op Medication Ordered: Anxiolytic - Acknowledgements Anesthesia Type Planned: General Anesthesia Pt an Appropriate Candidate for the Planned Anesthesia: Yes Alternatives and Risks of Anesthesia Discussed w Pt/Guardian: Yes Pt/Guardian Understands and Agrees with Anesthesia Plan: Yes PreAnesthesia Questionnaire HEENT History: Reports: Impaired Vision Other HEENT History: wears glasses Cardiovascular History: Reports: None Respiratory History: Reports: None Gastrointestinal History: Reports: GERD Genitourinary History: Reports: None HAIR WORKER History: Reports: None, Endometrial Ablation, Endometriosis Other OB/BYN History: Previous vaginal delivery in May of 2012, diagnostic laparoscopy Musculoskeletal History: Reports: None Neurological History: Reports: None Psychiatric History: Reports: None Endocrine/Metabolic History: Reports: None Hematologic History: Reports: None Immunologic History: Reports: None Oncologic (Cancer) History: Reports: None Dermatologic History: Reports: Other (See Below) Other Dermatologic History: ingrown toenail, wart to foot - Past Surgical History Head Surgeries/Procedures: Reports: None HEENT Surgical History: Reports: Naso-Sinus Surgery, Oral Surgery, Tonsillectomy Other HEENT Surgeries/Procedures: wisdom teeth Cardiovascular Surgical History: Reports: None Respiratory Surgical History: Reports: None GI Surgical History: Reports: None Female Surgical History: Reports: Endometrial Ablation Neurological Surgical History: Reports: None Musculoskeletal Surgical History: Reports: None Oncologic Surgical History: Reports: None Dermatological Surgical History: Reports: None - SUBSTANCE USE Smoking Status *Q: Current Every Day Smoker Recreational Drug Use History: No - HOME MEDS Home Medications: Home Meds . [No Known Home Meds] 06/18/19 [History] - CURRENT (IN HOUSE) MEDS Current Meds: Current Medications Lactated Ringer's (Ringers, Lactated) 1,000 mls @ 125 mls/hr IV ASDIRECTED MANUELITO Stop: 06/19/19 23:00 Last Admin: 06/19/19 07:15 Dose: 125 mls/hr Lidocaine/Sodium Bicarbonate (Buffered Lidocaine 1% In Ns 8.4%) 0.25 ml IDERM ONETIME PRN PRN Reason: Prior to IV Start Stop: 06/19/19 18:00 Last Admin: 06/19/19 07:15 Dose: 0.25 ml Sodium Chloride (Saline Flush) 10 ml FLUSH ASDIRECTED PRN PRN Reason: Keep Vein Open Stop: 06/19/19 18:00 Discontinued Medications Albuterol (Proventil Hfa) Confirm Administered Dose 6.7 gm INH .STK-MED ONE Stop: 06/19/19 08:42 Bupivacaine HCl (Marcaine 0.5%) Confirm Administered Dose 30 ml .ROUTE .STK-MED ONE Stop: 06/19/19 07:29 Cefazolin Sodium (Ancef) Confirm Administered Dose 2 gm .ROUTE .STK-MED ONE Stop: 06/19/19 07:12 Dexamethasone (Dexamethasone) Confirm Administered Dose 20 mg .ROUTE .STK-MED ONE Stop: 06/19/19 07:13 Fentanyl (Sublimaze) Confirm Administered Dose 250 mcg .ROUTE .STK-MED ONE Stop: 06/19/19 07:13 Glycopyrrolate () Confirm Administered Dose 1 mg .ROUTE .STK-MED ONE Stop: 06/19/19 08:36 Hydromorphone HCl (Dilaudid) Confirm Administered Dose 0.5 mg .ROUTE .STK-MED ONE Stop: 06/19/19 08:29 Lidocaine HCl (Xylocaine-Mpf 1%) Confirm Administered Dose 4 mls @ as directed .ROUTE .STK-MED ONE Stop: 06/19/19 07:12 Lactated Ringer's (Ringers, Lactated) Confirm Administered Dose 1,000 mls @ as directed .ROUTE .STK-MED ONE Stop: 06/19/19 07:12 Ketorolac Tromethamine (Toradol) Confirm Administered Dose 30 mg .ROUTE .STK- MED ONE Stop: 06/19/19 07:13 Lidocaine/Epinephrine (Xylocaine 1% With Epinephrine 1:100,000) Confirm Administered Dose 20 ml .ROUTE .STK-MED ONE Stop: 06/19/19 07:29 Midazolam HCl (Versed 1 Mg/Ml) Confirm Administered Dose 2 mg .ROUTE .STK-MED ONE Stop: 06/19/19 07:13 Neostigmine Methylsulfate (Neostigmine) Confirm Administered Dose 5 mg .ROUTE .STK-MED ONE Stop: 06/19/19 08:36 Ondansetron HCl (Zofran) Confirm Administered Dose 4 mg .ROUTE .STK-MED ONE Stop: 06/19/19 07:12 Propofol (Diprivan 20 Ml) Confirm Administered Dose 400 mg .ROUTE .STK-MED ONE Stop: 06/19/19 07:12 Rocuronium [place] (Zemuron) Confirm Administered Dose 50 mg .ROUTE .STK-MED ONE Stop: 06/19/19 07:12 Sodium Chloride (Normal Saline) Confirm Administered Dose 50 ml .ROUTE .STK-MED ONE Stop: 06/19/19 07:30
[2019-06-19] MEDS ORDERED: HYDROmorphone 0.5 MG/0.5 ML Syringe IVPUSH PRN (09:12)
[2019-06-19] MEDS ORDERED: Ondansetron 4 MG/2 ML SDV IVPUSH PRN ×2 (09:12→09:15)
[2019-06-19] MEDS ORDERED: fentaNYL 100 MCG/2 ML SDV IVPUSH PRN (09:12)
--- NOTE | 2019-06-19 09:12 | PCM.POSTAN ---
POST ANESTHESIA ASSESSMENT - MENTAL STATUS Mental Status: Alert, Oriented - VITAL SIGNS Vital Signs: Last Vital Signs Temp 36.9 C 06/19/19 09:00 Pulse 60 06/19/19 09:00 Resp 13 06/19/19 09:00 BP 134/67 06/19/19 09:00 Pulse Ox 100 06/19/19 09:08 - RESPIRATORY Respiratory Status: Respiratory Rate WNL, Airway Patent, O2 Saturation Stable, Supplemental Oxygen - CARDIOVASCULAR CV Status: Pulse Rate WNL, Blood Pressure Stable - GASTROINTESTINAL GI Status: No Symptoms - PAIN Pain Score: 5 - POST OP HYDRATION Hydration Status: Adequate & Stable
[2019-06-19] MEDS ORDERED: Acetaminophen/oxyCODONE 325-5 MG Tab PO PRN (09:15)
[2019-06-19] MEDS ORDERED: Ketorolac 30 MG/ML SDV IVPUSH SCH (09:15)
--- NOTE | 2019-06-19 09:20 | PCM.OPNOTE ---
- General Post-Op/Procedure Note Date of Surgery/Procedure: 06/19/19 Operative Procedure(s): Total vaginal hysterectomy with bilateral salpingectomy Findings: Uterus tubes and ovaries found to be within normal limits. Tubes were left in place per patient desire. Pre Op Diagnosis: 1. Pelvic pain. 2. Pelvic congestion syndrome. 3. Endometriosis Post-Op Diagnosis: Same Anesthesia Technique: General ET Tube Other Anesthesia Type: Lidocaine quarter percent with [id number] mLlocal Primary Surgeon: Matthew Weaver Secondary Surgeon: Wilbur Hill Anesthesia Provider: Lolly Whitmore Cloth Shrinking Supervisor: Josué Vital Pathology: Uterus, bilateral fallopian tubes EBL in mLs: 20 Complications: None Condition: Good Free Text/Narrative:: Surgery duration: 26 minutes. Procedure: The patient was placed in supine position on the operating table. General endotracheal anesthesia was accomplished. After positioning, and adequate prep and drape, the procedure was then performed. Sterile speculum was placed in the vagina and cervix was visualized. Cervix was injected with lidocaine quarter percent with epinephrine-20 mL used. A full circumference incision was made in the cervical epithelium. The bladder was pushed well back off cervix. Posterior cul-de-sac was then entered sharply without problems. Left uterosacral was crossclamped with a Enseal vessel closure system. The left uterosacral and then the right uterosacral ligament pedicles were developed using the Enseal system. The anterior cul-de-sac was then entered without problems and the uterine vasculature, cardinal ligament and broad ligament then developed using Enseal vessel closure system. The uterus was inverted at this time and upper broad ligament fallopian tube pedicles were crossclamped with Makenna clamps. Specimen was totally removed. Both these pedicles were then secured with a Enseal vessel closure system. Fallopian tubes were removed bilaterally using the vessel closure system. Left and right fallopian tube was normal in appearance.. Using Enseal vessel closure system each of the tubes was then removed and sent with the specimen. The patient was found to be hemostatically intact at this time. Vaginal cuff was sutured for hemostatic reasons with a running locked suture of 0 Monocryl from the 2 o'clock position to the 10 o'clock position posteriorly. Vaginal cuff was then closed from right to left side with a running locked suture of 0 Monocryl. Patient was returned to supine position and awakened from general endotracheal anesthesia. She tolerated the procedure and left the operating room in satisfactory condition.
--- NOTE | 2019-06-19 10:38 | PCM48HPAN ---
Post Anesthesia Note - EVALUATION WITHIN 48HRS OF ANESTHETIC Vital Signs in Normal Range: Yes Patient Participated in Evaluation: Yes Respiratory Function Stable: Yes Airway Patent: Yes Cardiovascular Function Stable: Yes Hydration Status Stable: Yes Pain Control Satisfactory: Yes Nausea and Vomiting Control Satisfactory: Yes Mental Status Recovered: Yes Vital Signs: Last Vital Signs Temp 36.8 C 06/19/19 10:15 Pulse 59 L 06/19/19 10:15 Resp 14 06/19/19 10:15 BP 128/71 06/19/19 10:15 Pulse Ox 98 06/19/19 10:15
== END 2019-06-19 11:02 | disposition home or self-care (01) ==
LOC: JD.SDS 07:03
PROVIDERS: ATTEND Obstetrics & Gynecology
DX: N94.89 Other specified conditions associated with female genital organs and menstrual cycle (principal); N72 Inflammatory disease of cervix uteri; N87.9 Dysplasia of cervix uteri, unspecified; N88.8 Other specified noninflammatory disorders of cervix uteri; I86.2 Pelvic varices; F17.210 Nicotine dependence, cigarettes, uncomplicated; Z88.0 Allergy status to penicillin; Z88.1 Allergy status to other antibiotic agents; Z79.899 Other long term (current) drug therapy
CPT/HCPCS: 36415; 58262; 81003; 81025; 82565; 85025; 86850; 86900; 86901; A9270; J0690; J1100; J1170; J1885; J2001; J2250; J2405; J2704; J2710; J3010; J7120; J3490

== ENCOUNTER 2020-06-01 16:37 | Emergency (ER) | payer BC ==
[2020-06-01] MEDS ORDERED: Sodium Chloride 0.9% 10 ML Syringe FLUSH PRN ×2 (17:23→18:26)
[2020-06-01] MEDS ORDERED: Ondansetron 4 MG/2 ML SDV IVPUSH ONE (17:23)
[2020-06-01] MEDS ORDERED: Sodium Chloride 0.9% 1,000 ML IV STA (17:23)
[2020-06-01] MEDS ORDERED: HYDROmorphone 0.5 MG/0.5 ML Syringe IVPUSH ONE ×2 (17:23→19:10)
--- NOTE | 2020-06-01 17:52 | EDM.PDOC ---
ED HPI GENERAL MEDICAL PROBLEM - General Chief Complaint: Abdominal Pain Stated Complaint: RIGHT SIDE PAIN Time Seen by Provider: 06/01/20 16:46 Source of Information: Reports: Patient History Limitations: Reports: No Limitations - History of Present Illness INITIAL COMMENTS - FREE TEXT/NARRATIVE: Patient is a 30-year-old female presenting to the emergency department with complaints of right upper quadrant abdominal pain, nausea, and diarrhea for the last 3 days. She describes the pain as a cramping sensation in her right upper quadrant that radiates through to the back. Pain has been constant over the last 3 days and worsening in intensity. She denies any periods where the pain was not present. There is no correlation to when she eats or drinks however, she has had a decreased appetite. She has had no vomiting but states she feels nauseous. Denies any known fever or chills. She is had numerous episodes of diarrhea over the course of the last 3 days. Denies previous appendectomy or cholecystectomy. States she has had a total hysterectomy for endometriosis. Patient ate last ate about 2.5 hours prior to coming to the ER. Right Lower Thoracic Pain Score (Numeric/FACES): 9 - Related Data Allergies Allergy/AdvReac Type Severity Reaction Status Date / Time amoxicillin Allergy Difficulty Verified 06/01/20 16:52 Swallowing ceclor Allergy Cannot Uncoded 06/01/20 16:52 Remember Home Meds: Home Meds Dicyclomine [Bentyl] 20 mg PO TID PRN #6 tab 06/01/20 [Rx] Sertraline [Zoloft] 100 mg PO DAILY 06/01/20 [History] Past Medical History HEENT History: Reports: Impaired Vision Other HEENT History: wears glasses Cardiovascular History: Reports: None Respiratory History: Reports: None Gastrointestinal History: Reports: GERD Genitourinary History: Reports: None [employer] History: Reports: None, Endometrial Ablation, Endometriosis Other [employer] History: Previous vaginal delivery in May of 2012, diagnostic laparoscopy Musculoskeletal History: Reports: None Neurological History: Reports: None Psychiatric History: Reports: None Endocrine/Metabolic History: Reports: None Hematologic History: Reports: None Immunologic History: Reports: None Oncologic (Cancer) History: Reports: None Dermatologic History: Reports: Other (See Below) Other Dermatologic History: ingrown toenail, wart to foot - Infectious Disease History Infectious Disease History: Reports: None - Past Surgical History Head Surgeries/Procedures: Reports: None HEENT Surgical History: Reports: Naso-Sinus Surgery, Oral Surgery, Tonsillectomy Other HEENT Surgeries/Procedures: wisdom teeth Cardiovascular Surgical History: Reports: None Respiratory Surgical History: Reports: None GI Surgical History: Reports: None Female Surgical History: Reports: Endometrial Ablation, Hysterectomy Neurological Surgical History: Reports: None Musculoskeletal Surgical History: Reports: None Oncologic Surgical History: Reports: None Dermatological Surgical History: Reports: None Social & Family History - Family History Family Medical History: Unobtainable - Tobacco Use Smoking Status *Q: Current Every Day Smoker Years of Tobacco use: 12 Packs/Tins Daily: 0.5 - Caffeine Use Caffeine Use: Reports: Coffee - Recreational Drug Use Recreational Drug Use: No - Sexual History Sexual History: Reports: Single Partner () ED ROS GENERAL - Review of Systems Review Of Systems: See Below Constitutional: Reports: Decreased Appetite. Denies: Fever, Chills HEENT: Reports: No Symptoms Respiratory: Reports: No Symptoms. Denies: Shortness of Breath, Cough Cardiovascular: Reports: No Symptoms Endocrine: Reports: No Symptoms GI/Abdominal: Reports: Abdominal Pain, Diarrhea, Decreased Appetite, Nausea. Denies: Vomiting : Reports: No Symptoms. Denies: Dysuria, Flank Pain, Frequency Musculoskeletal: Reports: No Symptoms Skin: Reports: No Symptoms Neurological: Reports: No Symptoms Psychiatric: Reports: No Symptoms Hematologic/Lymphatic: Reports: No Symptoms Immunologic: Reports: No Symptoms ED EXAM, GI/ABD - Physical Exam Exam: See Below General Appearance: Alert, WD/WN, No Apparent Distress Respiratory/Chest: No Respiratory Distress, Lungs Clear, Normal Breath Sounds, No Accessory Muscle Use, Chest Non-Tender Cardiovascular: Normal Peripheral Pulses, Regular Rate, Rhythm, No Edema, No Gallop, No JVD, No Murmur, No Rub GI/Abdominal Exam: Normal Bowel Sounds, Soft, No Organomegaly, No Distention, No Abnormal Bruit, No Mass, Pelvis Stable, Tender (RUQ and rt lateral tenderness) Extremities: Normal Inspection, Normal Range of Motion, Non-Tender, Normal Capillary Refill, No Pedal Edema Neurological: Alert, Oriented, CN II-XII Intact, Normal Cognition, Normal Gait, Normal Reflexes, No Motor/Sensory Deficits Psychiatric: Normal Affect, Normal Mood Skin Exam: Warm, Dry, Intact, Normal Color, No Rash Course - Vital Signs Last Recorded V/S: Last Vital Signs Temp 97.3 F 06/01/20 16:49 Pulse 80 06/01/20 16:49 Resp 16 06/01/20 16:49 BP 137/81 06/01/20 16:49 Pulse Ox 97 06/01/20 16:49 - Orders/Labs/Meds Orders: Active Orders 24 hr Category Date Time Status Abdomen Pelvis w Cont [CT] Stat Exams 06/01/20 17:23 Taken Peripheral IV Insertion Adult [OM.PC] Stat Oth 06/01/20 17:22 Ordered Labs: Laboratory Tests 06/01/20 06/01/20 06/01/20 Range/Units 17:30 17:30 17:37 WBC 10.51 H (3.98-10.04) K/mm3 RBC 4.69 (3.98-5.22) M/mm3 Hgb 14.0 (11.2-15.7) gm/dl Hct 42.3 (34.1-44.9) % MCV 90.2 (79.4-94.8) fl MCH 29.9 (25.6-32.2) pg MCHC 33.1 (32.2-35.5) g/dl RDW Std Deviation 42.1 (36.4-46.3) fL Plt Count 316 (182-369) K/mm3 MPV 9.1 L (9.4-12.3) fl Neut % (Auto) 53.5 (34.0-71.1) % Lymph % (Auto) 36.3 (19.3-51.7) % [place] % (Auto) 7.2 (4.7-12.5) % Eos % (Auto) 2.6 (0.7-5.8) Baso % (Auto) 0.2 (0.1-1.2) % Neut # (Auto) 5.62 (1.56-6.13) K/mm3 Lymph # (Auto) 3.82 H (1.18-3.74) K/mm3 Mclean # (Auto) 0.76 H (0.24-0.36) K/mm3 Eos # (Auto) 0.27 (0.04-0.36) K/mm3 Baso # (Auto) 0.02 (0.01-0.08) K/mm3 Manual Slide Review Normal smear Sodium 142 (136-145) mEq/L Potassium 3.7 (3.5-5.1) mEq/L Chloride 103 (98-107) mEq/L Carbon Dioxide 29 (21-32) mEq/L Anion Gap 13.7 (5-15) BUN 12 (7-18) mg/dL Creatinine 0.7 (0.55-1.02) mg/dL Est Cr Clr Drug Dosing 111.01 mL/min Estimated GFR (MDRD) > 60 (>60) mL/min BUN/Creatinine Ratio 17.1 (14-18) Glucose 93 (74-106) mg/dL Calcium 9.1 (8.5-10.1) mg/dL Total Bilirubin 0.2 (0.2-1.0) mg/dL AST 15 (15-37) U/L ALT 25 (14-59) U/L Alkaline Phosphatase 143 H (46-116) U/L C-Reactive Protein 1.8 H* (<1.0) mg/dL Total Protein 7.4 (6.4-8.2) g/dl Albumin 3.8 (3.4-5.0) g/dl Globulin 3.6 gm/dL Albumin/Globulin Ratio 1.1 (1-2) Lipase 131 (73-393) U/L Urine Color Light yellow (Yellow) Urine Appearance Clear (Clear) Urine pH 7.0 (5.0-8.0) Ur Specific [place] 1.020 (1.005-1.030) Urine Protein Negative (Negative) Urine Glucose (UA) Negative (Negative) Urine Ketones Negative (Negative) Urine Occult Blood Negative (Negative) Urine Nitrite Negative (Negative) Urine Bilirubin Negative (Negative) Urine Urobilinogen 0.2 (0.2-1.0) Ur Leukocyte Esterase Negative (Negative) Urine RBC Not seen (0-5) /hpf Urine WBC Not seen (0-5) /hpf Ur Squamous Epith Cells 5-10 H (0-5) /hpf Urine Bacteria Not seen (FEW) /hpf Urine Mucus Not seen (FEW) /hpf Meds: Medications Discontinued Medications Generic Name Dose Route Start Last Admin Trade Name Freq PRN Reason Stop Dose Admin Diatrizoate Meglum/Diatrizoate Sod 90 ml 06/01/20 18:26 06/01/20 18:42 Gastrografin 37% PO 06/01/20 18:27 90 ml ONETIME ONE Administration Dicyclomine HCl 20 mg 06/01/20 19:20 06/01/20 19:28 Bentyl PO 06/01/20 19:21 20 mg ONETIME ONE Administration Hydromorphone HCl 0.5 mg 06/01/20 17:23 06/01/20 17:39 Dilaudid IVPUSH 06/01/20 17:24 0.5 mg ONETIME ONE Administration Hydromorphone HCl 0.5 mg 06/01/20 19:10 06/01/20 19:16 Dilaudid IVPUSH 06/01/20 19:11 0.5 mg ONETIME ONE Administration Hyoscyamine 0.25 mg 06/01/20 18:00 06/01/20 18:05 Hyomax-Sl SL 06/01/20 18:01 0.25 mg ONETIME ONE Administration Sodium Chloride 1,000 mls @ 999 mls/hr 06/01/20 17:23 06/01/20 17:38 Normal Saline IV 06/01/20 18:23 999 mls/hr NOW STA Administration Iopamidol 100 ml 06/01/20 18:26 06/01/20 18:42 Isovue-300 (61%) IVPUSH 06/01/20 18:27 100 ml ONETIME ONE Administration Magnesium Citrate 296 ml 06/01/20 19:24 06/01/20 19:28 Citrate Of Magnesia PO 06/01/20 19:25 296 ml ONETIME ONE Administration Ondansetron HCl 4 mg 06/01/20 17:23 06/01/20 17:38 Zofran IVPUSH 06/01/20 17:24 4 mg ONETIME ONE Administration Sodium Chloride 10 ml 06/01/20 17:23 06/01/20 17:40 Saline Flush FLUSH 10 ml ASDIRECTED PRN Administration Keep Vein Open Sodium Chloride 10 ml 06/01/20 18:26 06/01/20 18:42 Saline Flush FLUSH 10 ml ONETIME PRN Administration Keep Vein Open - Re-Assessments/Exams Free Text/Narrative Re-Assessment/Exam: Patient is a 30-year-old female presenting to the emergency department with complaints of diffuse right upper and right lateral quadrant abdominal pain for the last 3 days that seems to be worsening in intensity. She describes it as a sharp cramping sensation that worsens with movement. She is also had some episodes of diarrhea today. Has had occasional nausea but no vomiting. Last ate about 12 hours prior to coming to ER. Unfortunately since she has just eaten, an ultrasound of her gallbladder is not recommended at this point. I have ordered a CT scan of the abdomen pelvis with contrast. Also ordered CBC, CMP, CRP, lipase, and urinalysis. I will give her 1 L bolus of IV fluids, Zofran for nausea, and Dilaudid for pain. 06/01/20 19:32 Hematology was significant for WBC minimally elevated at 10.5 with 1, alk phos 143, CRP 1.8. Lab work was otherwise unremarkable. CT scan of the abdomen pelvis showed a normal gallbladder with no evidence of biliary duct dilatation. There is some mild distention in her stomach but she has normal intestinal gas pattern. No evidence of colitis or diverticulitis. Appendix is normal. There are no acute abnormalities on the CT scan. My review of the CT, she does have a collection of stool in her ascending colon and hepatic flexure. This does somewhat correlate with the area of her pain. Discussed with patient that her pain could be related to this increased stool, but that the oral contrast she drank himself is a laxative. We will give her a dose of Bentyl here now. Will also send a short prescription for Bentyl that she may use at home. We will send her home with a bottle of magnesium citrate. If she does not have a bowel movement by tomorrow morning, recommend drinking the magnesium citrate to see if this relieves her discomfort. If discomfort fails to improve or she experiences new or worsening pain, she should return to the emergency department or follow-up with her provider in the clinic. She is in agreement with this plan. Discharge instructions as documented. Departure - Departure Time of Disposition: 19:38 Disposition: Home, Self-Care 01 Condition: Good Clinical Impression: Abdominal pain Qualifiers: Abdominal location: right upper quadrant Qualified Code(s): R10.11 - Right upper quadrant pain - Discharge Information *PRESCRIPTION DRUG MONITORING PROGRAM REVIEWED*: No *COPY OF PRESCRIPTION DRUG MONITORING REPORT IN PATIENT TIMBO: No Prescriptions: Dicyclomine [Bentyl] 20 mg PO TID PRN #6 tab PRN Reason: Abdominal Pain Instructions: Abdominal Pain, Adult, [id number] Referrals: Angie Chen PA-C [Primary Care Provider] - Forms: ED Department Discharge Additional Instructions: You were seen in the emergency department today for 3-day history of right- sided abdominal pain worsening in intensity. Work-up included blood work, urinalysis, and a CT scan of your abdomen pelvis with oral and IV contrast. Results of your work-up were found to be overall normal. The CT scan did not show any abnormalities within your gallbladder or any other infectious or obstructive abnormalities. As we discussed, there is an increased amount of stool in the area where you localize your pain. This could be the cause of your pain. The oral contrast that you drink in the emergency department in itself is a laxative. Recommend that you give this some time to work and see if you have a good bowel movement. He also received Bentyl which helps with abdominal cramping. A short prescription of this has been sent to [facility] as well. If by tomorrow morning you have not had a good bowel movement, I would recommend that she drink the bottle magnesium citrate that was sent home with you. If this fails to improve your pain or you experience any worsening of pain, recommend that you either follow-up in the clinic or return to the emergency department as needed. Sepsis Event Note (ED) - Evaluation Sepsis Screening Result: No Definite Risk - Focused Exam Vital Signs: Vital Signs Temp Pulse Resp BP Pulse Ox 06/01/20 16:49 97.3 F 80 16 137/81 97 - My Orders Last 24 Hours: My Active Orders 06/01/20 17:22 Peripheral IV Insertion Adult [OM.PC] Stat 06/01/20 17:23 Abdomen Pelvis w Cont [CT] Stat - Assessment/Plan Last 24 Hours: My Active Orders 06/01/20 17:22 Peripheral IV Insertion Adult [OM.PC] Stat 06/01/20 17:23 Abdomen Pelvis w Cont [CT] Stat
[2020-06-01] MEDS ORDERED: Hyoscyamine 0.125 MG Tab.SL SL ONE (18:00)
[2020-06-01] MEDS ORDERED: Diatrizoate Meglumine/Diatrizoate Sodium 37% 120 ML Bottle PO ONE (18:26)
[2020-06-01] MEDS ORDERED: Iopamidol 612 MG/ML 100 ML Bottle IVPUSH ONE (18:26)
[2020-06-01] MEDS ORDERED: Dicyclomine 10 MG Cap PO ONE (19:20)
[2020-06-01] MEDS ORDERED: Magnesium Citrate Solution 296 ML Bottle PO ONE (19:24)
== END 2020-06-01 19:49 | disposition home or self-care (01) ==
LOC: JD.ED 16:37
DX: R10.11 Right upper quadrant pain (principal); F17.210 Nicotine dependence, cigarettes, uncomplicated; R11.0 Nausea; R19.7 Diarrhea, unspecified; Z88.1 Allergy status to other antibiotic agents
CPT/HCPCS: 36415; 74177; 80053; 81001; 83690; 85025; 86140; 96361; 96374; 96375; 96376; 99284; A9270; J1170; J2405; J7030; Q9963; Q9967

== ENCOUNTER 2020-06-02 16:01 | Emergency (ER) | payer BC ==
[2020-06-02] MEDS ORDERED: Sodium Chloride 0.9% 10 ML Syringe FLUSH PRN (16:25)
[2020-06-02] MEDS ORDERED: Sodium Chloride 0.9% 1,000 ML IV STA (16:25)
[2020-06-02] MEDS ORDERED: Ondansetron 4 MG/2 ML SDV IVPUSH ONE (16:25)
[2020-06-02] MEDS ORDERED: HYDROmorphone 1 MG/ML Syringe IVPUSH ONE ×2 (16:27→18:50)
--- NOTE | 2020-06-02 16:59 | EDM.PDOC ---
ED HPI GENERAL MEDICAL PROBLEM - General Chief Complaint: Abdominal Pain Stated Complaint: ABDOMINAL PAIN NOT BETTER Time Seen by Provider: 06/02/20 16:12 Source of Information: Reports: Patient History Limitations: Reports: No Limitations - History of Present Illness INITIAL COMMENTS - FREE TEXT/NARRATIVE: The patient presents with right upper quadrant abdominal pain. This has been going no for about 4 days. She was seen here last night and had labs and a CT done. Her WBC was slightly elevated. Her CT looked good. She went home and had 3 episodes of diarrhea. The pain is worse. She has no fever, chills, cough, congestion, runny nose, chest pain, dysuria or hematuria. She still has her gallbladder and appendix. She has not been able to eat for over a day. Onset: Gradual Duration: Day(s): (4) Location: Reports: Abdomen Quality: Reports: Sharp Severity: Severe Improves with: Reports: None Worsens with: Reports: None Associated Symptoms: Reports: Nausea/Vomiting. Denies: Chest Pain, Cough, Fever/Chills, Headaches, Shortness of Breath Right Abdomen Pain Score (Numeric/FACES): 10 - Related Data Allergies Allergy/AdvReac Type Severity Reaction Status Date / Time amoxicillin Allergy Severe Difficulty Verified 06/02/20 16:11 Swallowing ceclor Allergy Severe Cannot Uncoded 06/02/20 16:11 Remember Home Meds: Home Meds Sertraline [Zoloft] 100 mg PO DAILY 06/01/20 [History] Hydrocodone/Acetaminophen [Hydrocodone-Acetamin 5-325 mg] 1 - 2 each PO Q6HR PRN #15 tablet 06/02/20 [Rx] Ondansetron [Zofran ODT] 4 mg PO Q6H PRN #20 tab.dis 06/02/20 [Rx] Past Medical History HEENT History: Reports: Impaired Vision Other HEENT History: wears glasses Cardiovascular History: Reports: None Respiratory History: Reports: None Gastrointestinal History: Reports: GERD Genitourinary History: Reports: None [employer] CH[employer]ER History: Reports: None, Endometrial Ablation, Endometriosis Other [employer] CH[employer]ER History: Previous vaginal delivery in May of 2012, diagnostic laparoscopy Musculoskeletal History: Reports: None Neurological History: Reports: None Psychiatric History: Reports: None Endocrine/Metabolic History: Reports: None Hematologic History: Reports: None Immunologic History: Reports: None Oncologic (Cancer) History: Reports: None Dermatologic History: Reports: Other (See Below) Other Dermatologic History: ingrown toenail, wart to foot - Infectious Disease History Infectious Disease History: Reports: None - Past Surgical History Head Surgeries/Procedures: Reports: None HEENT Surgical History: Reports: Naso-Sinus Surgery, Oral Surgery, Tonsillectomy Other HEENT Surgeries/Procedures: wisdom teeth Cardiovascular Surgical History: Reports: None Respiratory Surgical History: Reports: None GI Surgical History: Reports: None Female Surgical History: Reports: Endometrial Ablation, Hysterectomy Neurological Surgical History: Reports: None Musculoskeletal Surgical History: Reports: None Oncologic Surgical History: Reports: None Dermatological Surgical History: Reports: None Social & Family History - Family History Family Medical History: Unobtainable - Tobacco Use Smoking Status *Q: Current Every Day Smoker Years of Tobacco use: 10 Packs/Tins Daily: 0.5 - Caffeine Use Caffeine Use: Reports: Coffee - Recreational Drug Use Recreational Drug Use: No - Sexual History Sexual History: Reports: Single Partner () ED ROS GENERAL - Review of Systems Review Of Systems: See Below Constitutional: Reports: No Symptoms HEENT: Reports: No Symptoms Respiratory: Reports: No Symptoms Cardiovascular: Reports: No Symptoms Endocrine: Reports: No Symptoms GI/Abdominal: Reports: Abdominal Pain, Nausea, Vomiting. Denies: Diarrhea : Reports: No Symptoms ED EXAM, GI/ABD - Physical Exam Exam: See Below Exam Limited By: No Limitations General Appearance: Alert, No Apparent Distress Ears: Normal External Exam Nose: Normal Inspection Head: Atraumatic, Normocephalic Neck: Normal Inspection Respiratory/Chest: No Respiratory Distress, Lungs Clear, Normal Breath Sounds Cardiovascular: Regular Rate, Rhythm, No Edema, No Murmur GI/Abdominal Exam: Soft, No Organomegaly, No Mass, Tender (Moderate to severe pain upon palpation to the RUQ) Course - Vital Signs Last Recorded V/S: Last Vital Signs Temp 97.7 F 06/02/20 16:15 Pulse 75 06/02/20 16:15 Resp 20 06/02/20 16:15 BP 125/74 06/02/20 16:15 Pulse Ox 99 06/02/20 16:15 - Orders/Labs/Meds Orders: Active Orders 24 hr Category Date Time Status Peripheral IV Care [RC] . DIRECTED Care 06/02/20 16:26 Active Abdomen Ltd [US] Stat Exams 06/02/20 16:25 Taken COMPREHENSIVE METABOLIC PN,CMP [CHEM] Stat Lab 06/02/20 17:40 Received LIPASE [CHEM] Stat Lab 06/02/20 17:40 Received Sodium Chloride 0.9% [Saline Flush] Med 06/02/20 16:25 Active 10 ml FLUSH ASDIRECTED PRN ED Antiemetic Medication Reflex [OM.PC] Stat Oth 06/02/20 16:26 Ordered Peripheral IV Insertion Adult [OM.PC] Stat Oth 06/02/20 16:25 Ordered Medication Orders Sodium Chloride (Saline Flush) 10 ml FLUSH ASDIRECTED PRN PRN Reason: Keep Vein Open Last Admin: 06/02/20 17:46 Dose: 10 ml Documented by: PAWAN Labs: Laboratory Tests 06/02/20 06/02/20 Range/Units 17:40 17:40 WBC 10.38 H (3.98-10.04) K/mm3 RBC 4.80 (3.98-5.22) M/mm3 Hgb 14.4 (11.2-15.7) gm/dl Hct 43.6 (34.1-44.9) % MCV 90.8 (79.4-94.8) fl MCH 30.0 (25.6-32.2) pg MCHC 33.0 (32.2-35.5) g/dl RDW Std Deviation 42.7 (36.4-46.3) fL Plt Count 258 (182-369) K/mm3 MPV 9.6 (9.4-12.3) fl Neut % (Auto) 58.0 (34.0-71.1) % Lymph % (Auto) 32.9 (19.3-51.7) % [place]ook[place] % (Auto) 6.0 (4.7-12.5) % Eos % (Auto) 2.7 (0.7-5.8) Baso % (Auto) 0.2 (0.1-1.2) % Neut # (Auto) 6.03 (1.56-6.13) K/mm3 Lymph # (Auto) 3.41 (1.18-3.74) K/mm3 [place]ook[place] # (Auto) 0.62 H (0.24-0.36) K/mm3 Eos # (Auto) 0.28 (0.04-0.36) K/mm3 Baso # (Auto) 0.02 (0.01-0.08) K/mm3 Manual Slide Review Normal smear HCG, Qual Negative (NEGATIVE) Meds: Medications Generic Name Dose Route Start Last Admin Trade Name Freflorencio PRN Reason Stop Dose Admin Sodium Chloride 10 ml 06/02/20 16:25 06/02/20 17:46 Saline Flush FLUSH 10 ml ASDIRECTED PRN Administration Keep Vein Open Discontinued Medications Generic Name Dose Route Start Last Admin Trade Name Freq PRN Reason Stop Dose Admin Hydromorphone HCl 1 mg 06/02/20 16:27 06/02/20 17:48 Dilaudid IVPUSH 06/02/20 16:28 1 mg ONETIME ONE Administration Hydromorphone HCl 1 mg 06/02/20 18:50 06/02/20 19:06 Dilaudid IVPUSH 06/02/20 18:51 1 mg ONETIME ONE Administration Sodium Chloride 1,000 mls @ 1,000 mls/hr 06/02/20 16:25 06/02/20 17:47 Normal Saline IV 06/02/20 17:24 1,000 mls/hr .BOLUS STA Administration Ondansetron HCl 4 mg 06/02/20 16:25 06/02/20 17:47 Zofran IVPUSH 06/02/20 16:26 4 mg ONETIME ONE Administration - Re-Assessments/Exams Free Text/Narrative Re-Assessment/Exam: 06/02/20 17:15 I ordered an IV NS 1L bolus, zofran 4mg IV, dilaudid 1mg IV, labs and an US of her RUQ. 06/02/20 18:51 Her WBC was slightly elevated at 10.38 but that is done from yesterday at 10.51. Her US shows no acute intra-abdominal process is identified. Mild hepatomegaly with mild generalized fatty infiltration of the liver. The gallbladder and biliary system are unremarkable. 06/02/20 19:[address] Starkey and he can see her tomorrow at 9am. I will discharge her home with something for pain. Departure - Departure Time of Disposition: 19:40 Disposition: Home, Self-Care 01 Condition: Good Clinical Impression: Abdominal pain Qualifiers: Abdominal location: right upper quadrant Qualified Code(s): R10.11 - Right upper quadrant pain - Discharge Information *PRESCRIPTION DRUG MONITORING PROGRAM REVIEWED*: Not Applicable *COPY OF PRESCRIPTION DRUG MONITORING REPORT IN PATIENT TIMBO: Not Applicable Prescriptions: Hydrocodone/Acetaminophen [Hydrocodone-Acetamin 5-325 mg] 1 - 2 each PO Q6HR PRN #15 tablet PRN Reason: Pain Ondansetron [Zofran ODT] 4 mg PO Q6H PRN #20 tab.dis PRN Reason: Nausea\vomiting Referrals: Angie Chen PA-C [Primary Care Provider] - Jose Luis Starkey MD [Physician] - 1 Day Forms: ED Department Discharge Additional Instructions: Take the hydrocodone every 6 hours as needed for pain. Take the zofran every 6 hours as needed for nausea and vomiting. Follow up with Dr Starkey tomorrow at 9am. Please come early at 8:30am to register. Do not eat or drink before the appointment. Please return if you are worse. Sepsis Event Note (ED) - Evaluation Sepsis Screening Result: No Definite Risk - Focused Exam Vital Signs: Vital Signs Temp Pulse Resp BP Pulse Ox 06/02/20 16:15 97.7 F 75 20 125/74 99 - My Orders Last 24 Hours: My Active Orders 06/02/20 16:25 Abdomen Ltd [US] Stat Sodium Chloride 0.9% [Saline Flush] 10 ml FLUSH ASDIRECTED PRN Peripheral IV Insertion Adult [OM.PC] Stat 06/02/20 16:26 Peripheral IV Care [RC] . DIRECTED ED Antiemetic Medication Reflex [OM.PC] Stat 06/02/20 17:40 COMPREHENSIVE METABOLIC PN,CMP [CHEM] Stat LIPASE [CHEM] Stat - Assessment/Plan Last 24 Hours: My Active Orders 06/02/20 16:25 Abdomen Ltd [US] Stat Sodium Chloride 0.9% [Saline Flush] 10 ml FLUSH ASDIRECTED PRN Peripheral IV Insertion Adult [OM.PC] Stat 06/02/20 16:26 Peripheral IV Care [RC] . DIRECTED ED Antiemetic Medication Reflex [OM.PC] Stat 06/02/20 17:40 COMPREHENSIVE METABOLIC PN,CMP [CHEM] Stat LIPASE [CHEM] Stat
--- NOTE | 2020-06-28 13:50 | US ---
"PROCEDURE INFORMATION: Exam: US Abdomen, Limited; Right Upper Quadrant Exam date and time: 06/02/2020 4:43 PM Age: 30 years old Clinical indication: Abdominal pain TECHNIQUE: Imaging protocol: US abdomen. Real time ultrasound with image documentation. Limited exam focused on the right upper quadrant. COMPARISON: CT Abdomen Pelvis w Cont 06/01/2020 6:30 PM FINDINGS: Liver: Mild hepatomegaly measuring 18.7 cm craniocaudal at the midclavicular line. Normal contour. No focal hepatic lesions are identified. Mild generalized increase in hepatic echogenicity consistent with fatty infiltration. No intrahepatic biliary ductal dilatation. Hepatopedal flow demonstrated in the main portal vein. Gallbladder: The gallbladder is normal in appearance without evidence of stones, wall thickening, or pericholecystic fluid. Gallbladder wall thickness 2 mm. Negative sonographic Loo's sign reported by the technologist. Common bile duct: Nondilated common bile duct measuring 4 mm diameter. Pancreas: Visualized portions of the pancreatic head and neck were normal in appearance. The body and tail were obscured by bowel gas. No pancreatic ductal dilatation is evident. Right kidney: The right kidney measures 10.1 cm in length. No hydronephrosis or gross nephrolithiasis. Normal cortical thickness and corticomedullary differentiation. No cystic or solid renal lesions. No perinephric abnormalities. Aorta: Visualized segments of the abdominal aorta were unremarkable. Inferior vena cava: Visualized segments of the IVC are unremarkable. Intraperitoneal space: No free fluid was identified. Other findings: The exam was performed on 06/02/2020 but presented for final interpretation today. [facility] | Final Radiology Report CONFIDENTIALITY STATEMENT This report is intended only for use by the referring physician, and only in accordance with law. If you received this in error, call [phone]. Page 2 of 2 IMPRESSION: 1. No acute intra-abdominal process is identified. 2. Mild hepatomegaly with mild generalized fatty infiltration of the liver. 3. The gallbladder and biliary system are unremarkable. Thank you for allowing us to participate in the care of your patient. Dictated and Authenticated by: Gary Mancia MD 06/27/2020 5:35 PM Central Time ([place] & [place]) DAMIAN"
== END 2020-06-02 19:50 | disposition home or self-care (01) ==
LOC: JD.ED 16:01
DX: R10.11 Right upper quadrant pain (principal); R11.2 Nausea with vomiting, unspecified; F17.210 Nicotine dependence, cigarettes, uncomplicated; Z88.1 Allergy status to other antibiotic agents; Z79.899 Other long term (current) drug therapy
CPT/HCPCS: 36415; 76705; 80053; 83690; 84703; 85025; 96361; 96374; 96375; 96376; 99284; J1170; J2405; J7030; 99283

== ENCOUNTER 2020-06-03 09:54 | Day surgery (SDC) | payer BC ==
[~2020-06-03 09:54] MED LIST changes: -Lactated Ringers 1,000 ML IV SCH
[2020-06-03] MEDS ORDERED: Lactated Ringers 1,000 ML IV SCH (10:00)
[2020-06-03] MEDS ORDERED: Propofol 200 MG/20 ML SDV ONE (10:19)
[2020-06-03] MEDS ORDERED: Lidocaine 1% 4 ML ONE (10:19)
[2020-06-03] MEDS ORDERED: Rocuronium 50 MG/5 ML Vial ONE (10:19)
[2020-06-03] MEDS ORDERED: Midazolam 1 MG/ML 2 ML SDV ONE (10:21)
[2020-06-03] MEDS ORDERED: fentaNYL 250 MCG/5 ML SDV ONE (10:22)
--- NOTE | 2020-06-03 10:35 | PCM.PREANE ---
Preanesthetic Assessment - Anesthesia/Transfusion/Family Hx Anesthesia History: Prior Anesthesia Without Reaction Family History of Anesthesia Reaction: No Transfusion History: No Prior Transfusion(s) - Review of Systems General: No Symptoms Pulmonary: No Symptoms Cardiovascular: No Symptoms Gastrointestinal: No Symptoms Neurological: No Symptoms Other: Reports: None - Physical Assessment NPO Status Date: 06/02/20 NPO Status Time: 19:00 ASA Class: 2 Mental Status: Alert & Oriented x3 Airway Class: Mallampati = 1 Dentition: Reports: Normal Dentition Thyro-Mental Finger Breadths: 3 Mouth Opening Finger Breadths: 3 ROM/Head Extension: Full Lungs: Clear to Auscultation, Normal Respiratory Effort Cardiovascular: Regular Rate, Regular Rhythm - Allergies Allergies/Adverse Reactions: Allergies Allergy/AdvReac Type Severity Reaction Status Date / Time amoxicillin Allergy Severe Difficulty Verified 06/02/20 16:11 Swallowing ceclor Allergy Severe Cannot Uncoded 06/02/20 16:11 Remember - Acknowledgements Anesthesia Type Planned: General Anesthesia Pt an Appropriate Candidate for the Planned Anesthesia: Yes Alternatives and Risks of Anesthesia Discussed w Pt/Guardian: Yes Pt/Guardian Understands and Agrees with Anesthesia Plan: Yes PreAnesthesia Questionnaire HEENT History: Reports: Impaired Vision Other HEENT History: wears glasses Cardiovascular History: Reports: None Respiratory History: Reports: None Gastrointestinal History: Reports: GERD Genitourinary History: Reports: None 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, Endometrial Ablation, Endometriosis Other OB/BYN History: Previous vaginal delivery in May of 2012, diagnostic laparoscopy Musculoskeletal History: Reports: None Neurological History: Reports: None Psychiatric History: Reports: None Endocrine/Metabolic History: Reports: None Hematologic History: Reports: None Immunologic History: Reports: None Oncologic (Cancer) History: Reports: None Dermatologic History: Reports: Other (See Below) Other Dermatologic History: ingrown toenail, wart to foot - Infectious Disease History Infectious Disease History: Reports: None - Past Surgical History Head Surgeries/Procedures: Reports: None HEENT Surgical History: Reports: Naso-Sinus Surgery, Oral Surgery, Tonsillectomy Other HEENT Surgeries/Procedures: wisdom teeth Cardiovascular Surgical History: Reports: None Respiratory Surgical History: Reports: None GI Surgical History: Reports: None Female Surgical History: Reports: Endometrial Ablation, Hysterectomy Neurological Surgical History: Reports: None Musculoskeletal Surgical History: Reports: None Oncologic Surgical History: Reports: None Dermatological Surgical History: Reports: None - SUBSTANCE USE Smoking Status *Q: Current Every Day Smoker - HOME MEDS Home Medications: Home Meds Sertraline [Zoloft] 100 mg PO DAILY 06/01/20 [History] Hydrocodone/Acetaminophen [Hydrocodone-Acetamin 5-325 mg] 1 - 2 each PO Q6HR PRN #15 tablet 06/02/20 [Rx] Ondansetron [Zofran ODT] 4 mg PO Q6H PRN #20 tab.dis 06/02/20 [Rx] - CURRENT (IN HOUSE) MEDS Current Meds: Current Medications Lactated Ringer's (Ringers, Lactated) 1,000 mls @ 125 mls/hr IV ASDIRECTED MANUELITO Stop: 06/03/20 23:00 Lidocaine/Sodium Bicarbonate (Buffered Lidocaine 1% In Ns 8.4%) 0.25 ml IDERM ONETIME PRN PRN Reason: Prior to IV Start Stop: 06/03/20 18:00 Sodium Chloride (Saline Flush) 10 ml FLUSH ASDIRECTED PRN PRN Reason: Keep Vein Open Stop: 06/03/20 18:00 Discontinued Medications Fentanyl (Sublimaze) Confirm Administered Dose 250 mcg .ROUTE .STK-MED ONE Stop: 06/03/20 10:23 Lidocaine HCl (Xylocaine-Mpf 1%) Confirm Administered Dose 4 mls @ as directed .ROUTE .STK-MED ONE Stop: 06/03/20 10:20 Midazolam HCl (Versed 1 Mg/Ml) Confirm Administered Dose 2 mg .ROUTE .STK-MED ONE Stop: 06/03/20 10:22 Propofol (Diprivan 20 Ml) Confirm Administered Dose 200 mg .ROUTE .STK-MED ONE Stop: 06/03/20 10:20 Rocuronium [place] (Zemuron) Confirm Administered Dose 50 mg .ROUTE .STK-MED ONE Stop: 06/03/20 10:20
[2020-06-03] MEDS ORDERED: Bupivacaine 0.5%/EPINEPHrine 1:200,000 50 ML MDV ONE (10:36)
[2020-06-03] MEDS ORDERED: ceFAZolin 1 GM Vial ONE (12:04)
[2020-06-03] MEDS ORDERED: Clindamycin Phosphate in D5W 900 MG in Premix Bag 1 BAG IV SCH ×2 (12:06)
[2020-06-03] MEDS ORDERED: HYDROmorphone 0.5 MG/0.5 ML Syringe ONE ×2 (12:09→12:47)
[2020-06-03] MEDS ORDERED: Ondansetron 4 MG/2 ML SDV ONE (12:28)
[2020-06-03] MEDS ORDERED: Lactated Ringers 1,000 ML ONE (12:30)
[2020-06-03] MEDS ORDERED: Ketorolac 30 MG/ML SDV ONE (12:33)
--- NOTE | 2020-06-03 12:49 | PCM.PRNOTE ---
- Free Text/Narrative Note: Operative Report Operation: laparoscopic cholecystectomy Date: 06/03/2020 Attending Surgeon: Jose Luis Starkey MD Indication for Surgery: right upper quadrant pain, nausea, slight leukocytosis Preoperative antibiotics: 900 mg clindamycin IV VTE prophylaxis: SCDs Estimated Blood Loss: 5 cc Findings: normal anatomy, critical view obtained Detailed Report: The patient underwent general endotracheal anesthesia after being placed supine on the operating table. Time out was performed, confirming the patients identit y and the operation to be performed. The abdomen was prepped and draped in sterile fashion. A Veress needle was inserted into the abdominal cavity below the left costal margin along the mid-clavicular line. The abdomen was insufflated with CO2 to 15 mm Hg. Gas was aspirated below the umbilicus with a syringe in order to ensure safe placement of a 5 mm bladed laparoscopic port. The 5mm 30 degree laparoscope was then inserted and viscera inspected. Two additional 5 mm ports were placed along the right subcostal region under direct vision with the laparoscope. The gallbladder fundus was grasped and retracted cephalad. An additional 12 mm port was placed in the subxiphoid area. The gallbladder infundibulum was grasped with the surgeons left hand grasper and retracted laterally. The hook electrode was used to open the overlying peritoneum, and this plane of dissection was developed along the edges of the gallbladder at its interface with the liver. Dissection was performed with a combination of the hook electrode, suction sash sticker and [place] grasper, carefully exposing and skeletonizing the cystic duct and artery. A critical view of safety was obtained. Hemolock clips were then placed on both structures. The duct and artery were transected with laparoscopic scissors between the hemolock clips. The hook was then used to dissect the gallbladder free from its attachment to the liver. The specimen was then placed in an Endocatch bag and removed through the subxiphoid port. The liver bed was inspected and appeared hemostatic. The larger subxiphoid port was closed at the level of the fascia with vicryl suture using the PMI laparoscopic suture passer. Pneumoperitoneum was then released. All skin incisions were then closed with placement of subcuticular vicryl suture and dressed with dermabond. A total of 20 cc 0.5% marcaine with epinephrine was used for local anesthesia at the incision sites. The patient tolerated the operation well, was extubated in the operating room an d transferred to the PACU for routine post-anesthesia care.
[2020-06-03] MEDS ORDERED: Ondansetron 4 MG/2 ML SDV IVPUSH PRN (12:51)
[2020-06-03] MEDS ORDERED: fentaNYL 100 MCG/2 ML SDV IVPUSH PRN (12:51)
[2020-06-03] MEDS ORDERED: HYDROmorphone 0.5 MG/0.5 ML Syringe IVPUSH PRN (12:51)
--- NOTE | 2020-06-03 12:54 | PCM.POSTAN ---
POST ANESTHESIA ASSESSMENT - MENTAL STATUS Mental Status: Alert, Oriented - VITAL SIGNS Vital Signs: Last Vital Signs Temp 36.5 C 06/03/20 10:00 Pulse 65 06/03/20 10:00 Resp 16 06/03/20 10:00 BP 105/63 06/03/20 10:00 Pulse Ox 96 06/03/20 10:00 - RESPIRATORY Respiratory Status: Respiratory Rate WNL, Airway Patent, O2 Saturation Stable - CARDIOVASCULAR CV Status: Pulse Rate WNL, Blood Pressure Stable - GASTROINTESTINAL GI Status: No Symptoms - PAIN Pain Score: 2 - POST OP HYDRATION Hydration Status: Adequate & Stable
--- NOTE | 2020-06-03 13:18 | PCM48HPAN ---
Post Anesthesia Note - EVALUATION WITHIN 48HRS OF ANESTHETIC Vital Signs in Normal Range: Yes Patient Participated in Evaluation: Yes Respiratory Function Stable: Yes Airway Patent: Yes Cardiovascular Function Stable: Yes Hydration Status Stable: Yes Pain Control Satisfactory: Yes Nausea and Vomiting Control Satisfactory: Yes Mental Status Recovered: Yes (sleepy ) Vital Signs: Last Vital Signs Temp 98.1 F 06/03/20 13:05 Pulse 71 06/03/20 13:05 Resp 97 H 06/03/20 13:05 BP 114/41 L 06/03/20 13:05 Pulse Ox 98 06/03/20 12:48
[2020-06-03] MEDS ORDERED: oxyCODONE 5 MG Tab PO PRN (13:31)
== END 2020-06-03 15:12 | disposition home or self-care (01) ==
LOC: JD.SDS 09:54
PROVIDERS: ATTEND Surgery
DX: K81.1 Chronic cholecystitis (principal); F17.210 Nicotine dependence, cigarettes, uncomplicated; Z88.8 Allergy status to other drugs, medicaments and biological substances; Z88.1 Allergy status to other antibiotic agents; Z98.890 Other specified postprocedural states
CPT/HCPCS: 47562; A9270; J0690; J1170; J1885; J2001; J2250; J2405; J2704; J2710; J3010; J3490; J7120; 00790

== ENCOUNTER 2021-05-18 14:45 | Emergency (ER) | payer BC, MEDICAID ==
[2021-05-18] MEDS ORDERED: Ondansetron 4 MG/2 ML SDV IVPUSH ONE (16:16)
[2021-05-18] MEDS ORDERED: Sodium Chloride 0.9% 10 ML Syringe FLUSH PRN (16:16)
[2021-05-18] MEDS ORDERED: Sodium Chloride 0.9% 1,000 ML IV STA (16:16)
[2021-05-18] MEDS ORDERED: HYDROmorphone 1 MG/ML Syringe IVPUSH ONE ×2 (16:18→17:56)
[2021-05-18] MEDS ORDERED: Iopamidol 612 MG/ML 100 ML Bottle IVPUSH ONE (16:29)
[2021-05-18] MEDS ORDERED: Diatrizoate Meglumine/Diatrizoate Sodium 37% 120 ML Bottle PO ONE (16:29)
[2021-05-18] MEDS ORDERED: Iopamidol 612 MG/ML 50 ML SDV IVPUSH ONE (16:29)
[2021-05-18] MEDS ORDERED: Sodium Chloride 0.9% 10 ML Syringe FLUSH ONE (16:29)
--- NOTE | 2021-05-18 17:52 | EDM.PDOC ---
ED HPI GENERAL MEDICAL PROBLEM - General Chief Complaint: Abdominal Pain Stated Complaint: LOWER ABDOMINAL PAIN Time Seen by Provider: 05/18/21 16:10 Source of Information: Reports: Patient History Limitations: Reports: No Limitations - History of Present Illness INITIAL COMMENTS - FREE TEXT/NARRATIVE: The patient presents with right lower abdominal pain and nausea. This started a few hours ago. She has a history of endometriosis but this feels different. It was more severe. She has nausea but no vomiting. She had her gallbladder removed and her uterus. She has no fever, chills, cough, chest pain, shortness of breath, dysuria or diarrhea. She still has an appendix. She cannot stand up strait because of the pain. Onset: Gradual Duration: Hour(s): Location: Reports: Abdomen Quality: Reports: Sharp Severity: Severe Improves with: Reports: None Worsens with: Reports: None Associated Symptoms: Reports: Nausea/Vomiting. Denies: Chest Pain, Cough, Fever/Chills, Headaches, Shortness of Breath Abdomen Pain Score (Numeric/FACES): 10 - Related Data Allergies Allergy/AdvReac Type Severity Reaction Status Date / Time amoxicillin Allergy Severe Difficulty Verified 05/18/21 16:07 Swallowing ceclor Allergy Severe Cannot Uncoded 05/18/21 16:07 Remember Home Meds: Home Meds Sertraline [Zoloft] 50 mg PO DAILY 06/01/20 [History] Hydrocodone/Acetaminophen [Hydrocodone-Acetamin 5-325 mg] 1 - 2 each PO Q6H PRN #15 tablet 05/18/21 [Rx] Ondansetron [Zofran ODT] 4 mg PO Q6H PRN #20 tab.dis 05/18/21 [Rx] Past Medical History HEENT History: Reports: Impaired Vision Other HEENT History: wears glasses Cardiovascular History: Reports: None Respiratory History: Reports: None Gastrointestinal History: Reports: GERD Genitourinary History: Reports: None 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, Endometrial Ablation, Endometriosis Other CUSTOMER ACCOUNT COORDINATOR History: Previous vaginal delivery in May of 2012, diagnostic laparoscopy Musculoskeletal History: Reports: None Neurological History: Reports: None Psychiatric History: Reports: None Endocrine/Metabolic History: Reports: None Hematologic History: Reports: None Immunologic History: Reports: None Oncologic (Cancer) History: Reports: None Dermatologic History: Reports: Other (See Below) Other Dermatologic History: ingrown toenail, wart to foot - Infectious Disease History Infectious Disease History: Reports: None - Past Surgical History Head Surgeries/Procedures: Reports: None HEENT Surgical History: Reports: Naso-Sinus Surgery, Oral Surgery, Tonsillectomy Other HEENT Surgeries/Procedures: wisdom teeth Cardiovascular Surgical History: Reports: None Respiratory Surgical History: Reports: None GI Surgical History: Reports: Cholecystectomy Female Surgical History: Reports: Endometrial Ablation, Hysterectomy Neurological Surgical History: Reports: None Musculoskeletal Surgical History: Reports: None Oncologic Surgical History: Reports: None Dermatological Surgical History: Reports: None Social & Family History - Family History Family Medical History: Unobtainable - Tobacco Use Tobacco Use Status *Q: Current Every Day Tobacco User Years of Tobacco use: 10 Packs/Tins Daily: 0.5 - Caffeine Use Caffeine Use: Reports: Coffee - Recreational Drug Use Recreational Drug Use: No - Sexual History Sexual History: Reports: Single Partner () ED ROS GENERAL - Review of Systems Review Of Systems: See Below Constitutional: Reports: No Symptoms HEENT: Reports: No Symptoms Respiratory: Reports: No Symptoms Cardiovascular: Reports: No Symptoms Endocrine: Reports: No Symptoms GI/Abdominal: Reports: Abdominal Pain, Nausea. Denies: Diarrhea, Vomiting : Reports: No Symptoms Musculoskeletal: Reports: No Symptoms Skin: Reports: No Symptoms ED EXAM, GI/ABD - Physical Exam Exam: See Below Exam Limited By: No Limitations General Appearance: Alert, No Apparent Distress Ears: Normal External Exam Nose: Normal Inspection Head: Atraumatic, Normocephalic Neck: Normal Inspection Respiratory/Chest: No Respiratory Distress, Lungs Clear, Normal Breath Sounds Cardiovascular: Regular Rate, Rhythm, No Edema, No Murmur GI/Abdominal Exam: Soft, No Organomegaly, No Mass, Tender (Moderate tenderness to the right lower abdomen) Course - Vital Signs Last Recorded V/S: Last Vital Signs Temp 98 F 05/18/21 15:19 Pulse 118 H 05/18/21 15:19 Resp 16 05/18/21 15:19 BP 139/73 05/18/21 15:19 Pulse Ox 96 05/18/21 15:19 - Orders/Labs/Meds Orders: Active Orders 24 hr Category Date Time Status Peripheral IV Care [RC] . DIRECTED Care 05/18/21 16:16 Active Abdomen Pelvis w Cont [CT] Stat Exams 05/18/21 16:16 Taken Sodium Chloride 0.9% [Saline Flush] Med 05/18/21 16:16 Active 10 ml FLUSH ASDIRECTED PRN ED Antiemetic Medication Reflex [OM.PC] Stat Oth 05/18/21 16:16 Ordered Peripheral IV Insertion Adult [OM.PC] Stat Oth 05/18/21 16:16 Ordered Medication Orders Sodium Chloride (Sodium Chloride 0.9% 10 Ml Syringe) 10 ml FLUSH ASDIRECTED PRN PRN Reason: Keep Vein Open Last Admin: 05/18/21 17:34 Dose: 10 ml Documented by: BUSHRA Labs: Laboratory Tests 05/18/21 05/18/21 05/18/21 Range/Units 16:10 16:10 17:15 WBC 13.24 H (3.98-10.04) K/mm3 RBC 4.65 (3.98-5.22) M/mm3 Hgb 14.1 (11.2-15.7) gm/dl Hct 42.0 (34.1-44.9) % MCV 90.3 (79.4-94.8) fl MCH 30.3 (25.6-32.2) pg MCHC 33.6 (32.2-35.5) g/dl RDW Std Deviation 42.3 (36.4-46.3) fL Plt Count 288 (182-369) K/mm3 MPV 9.3 L (9.4-12.3) fl Neut % (Auto) 68.0 (34.0-71.1) % Lymph % (Auto) 24.7 (19.3-51.7) % [place] % (Auto) 5.7 (4.7-12.5) % Eos % (Auto) 1.2 (0.7-5.8) Baso % (Auto) 0.2 (0.1-1.2) % Neut # (Auto) 9.01 H (1.56-6.13) K/mm3 Lymph # (Auto) 3.27 (1.18-3.74) K/mm3 [place] # (Auto) 0.76 H (0.24-0.36) K/mm3 Eos # (Auto) 0.16 (0.04-0.36) K/mm3 Baso # (Auto) 0.02 (0.01-0.08) K/mm3 Sodium 139 (136-145) mEq/L Potassium 3.6 (3.5-5.1) mEq/L Chloride 102 (98-107) mEq/L Carbon Dioxide 24 (21-32) mEq/L Anion Gap 16.6 H (5-15) BUN 17 (7-18) mg/dL Creatinine 0.7 (0.55-1.02) mg/dL Est Cr Clr Drug Dosing 105.74 mL/min Estimated GFR (MDRD) > 60 (>60) mL/min BUN/Creatinine Ratio 24.3 H (14-18) Glucose 109 H (70-99) mg/dL Calcium 8.5 (8.5-10.1) mg/dL Total Bilirubin 0.2 (0.2-1.0) mg/dL AST 10 L (15-37) U/L ALT 24 (14-59) U/L Alkaline Phosphatase 100 (46-116) U/L Total Protein 7.3 (6.4-8.2) g/dl Albumin 3.9 (3.4-5.0) g/dl Globulin 3.4 gm/dL Albumin/Globulin Ratio 1.2 (1-2) Lipase 171 (73-393) U/L Urine Color Yellow (Yellow) Urine Appearance Clear (Clear) Urine pH 6.5 (5.0-8.0) Ur Specific [place] 1.015 (1.005-1.030) Urine Protein Negative (Negative) Urine Glucose (UA) Negative (Negative) Urine Ketones Negative (Negative) Urine Occult Blood Trace-lysed H (Negative) Urine Nitrite Negative (Negative) Urine Bilirubin Negative (Negative) Urine Urobilinogen 0.2 (0.2-1.0) Ur Leukocyte Esterase Negative (Negative) Urine RBC 0-5 (0-5) /hpf Urine WBC 0-5 (0-5) /hpf Ur Squamous Epith Cells 0-5 (0-5) /hpf Urine Bacteria Occasional (FEW) /hpf Urine Mucus Not seen (FEW) /hpf Meds: Medications Generic Name Dose Route Start Last Admin Trade Name Freq PRN Reason Stop Dose Admin Sodium Chloride 10 ml 05/18/21 16:16 05/18/21 17:34 Sodium Chloride 0.9% 10 Ml Syringe FLUSH 10 ml ASDIRECTED PRN Administration Keep Vein Open Discontinued Medications Generic Name Dose Route Start Last Admin Trade Name Gurjit PRN Reason Stop Dose Admin Diatrizoate Meglum/Diatrizoate Sod 90 ml 05/18/21 16:29 05/18/21 17:33 Diatrizoate Meglumine/Diatrizoate Sodium 37% 120 Ml Bottle PO 05/18/21 16:30 90 ml ONETIME ONE Administration Hydromorphone HCl 1 mg 05/18/21 16:18 05/18/21 16:40 Hydromorphone 1 Mg/Ml Syringe IVPUSH 05/18/21 16:19 1 mg ONETIME ONE Administration Hydromorphone HCl 1 mg 05/18/21 17:56 05/18/21 18:05 Hydromorphone 1 Mg/Ml Syringe IVPUSH 05/18/21 17:57 1 mg ONETIME ONE Administration Sodium Chloride 1,000 mls @ 1,000 mls/hr 05/18/21 16:16 05/18/21 16:40 Normal Saline IV 05/18/21 17:15 1,000 mls/hr .BOLUS STA Administration Iopamidol 100 ml 05/18/21 16:29 05/18/21 17:33 Iopamidol 612 Mg/Ml 100 Ml Bottle IVPUSH 05/18/21 16:30 100 ml ONETIME ONE Administration Iopamidol 25 ml 05/18/21 16:29 05/18/21 17:33 Iopamidol 612 Mg/Ml 50 Ml Sdv IVPUSH 05/18/21 16:30 25 ml ONETIME ONE Administration Ondansetron HCl 4 mg 05/18/21 16:16 05/18/21 16:40 Ondansetron 4 Mg/2 Ml Sdv IVPUSH 05/18/21 16:17 4 mg ONETIME ONE Administration Sodium Chloride 10 ml 05/18/21 16:29 05/18/21 16:44 Sodium Chloride 0.9% 10 Ml Syringe FLUSH 05/18/21 16:30 10 ml ONETIME ONE Administration - Re-Assessments/Exams Free Text/Narrative Re-Assessment/Exam: 05/18/21 17:48 I ordered an IV NS 1L bolus, zofran 4mg IV, dilaudid 1mg IV, labs, UA and a CT of her abdomen and pelvis with IV and oral contrast. Her WBC was elevated at 13.24. Her anion gap was elevated at 16.6. Her UA shows no UTI. 05/18/21 18:[address] of her abdomen and pelvis shows no sign of acute intra-abdominal pathology. Normal appendix. She had more pain after the CT scan. I feel this may be endometriosis again. I will give her something for pain at home and follow up with her provider. Departure - Departure Time of Disposition: 18:30 Disposition: Home, Self-Care 01 Condition: Good Clinical Impression: Abdominal pain Qualifiers: Abdominal location: right lower quadrant Qualified Code(s): R10.31 - Right lower quadrant pain - Discharge Information *PRESCRIPTION DRUG MONITORING PROGRAM REVIEWED*: Not Applicable *COPY OF PRESCRIPTION DRUG MONITORING REPORT IN PATIENT TIMBO: Not Applicable Prescriptions: Hydrocodone/Acetaminophen [Hydrocodone-Acetamin 5-325 mg] 1 - 2 each PO Q6H PRN #15 tablet PRN Reason: Pain Ondansetron [Zofran ODT] 4 mg PO Q6H PRN #20 tab.dis PRN Reason: Nausea\vomiting Referrals: Angie Chen PA-C [Primary Care Provider] - 1 Week Forms: ED Department Discharge, ED Return to Work/School Form Additional Instructions: Drink plenty of fluids. Take the zofran as needed for any nausea or vomiting. Take tylenol or motrin as needed for pain. If that does not help, try the hydrocodone. Follow up with Angie within a week. Please return if you are worse. Sepsis Event Note (ED) - Evaluation Sepsis Screening Result: No Definite Risk - Focused Exam Vital Signs: Vital Signs Temp Pulse Resp BP Pulse Ox 05/18/21 15:19 98 F 118 H 16 139/73 96 - My Orders Last 24 Hours: My Active Orders 05/18/21 16:16 Peripheral IV Care [RC] . DIRECTED Abdomen Pelvis w Cont [CT] Stat Sodium Chloride 0.9% [Saline Flush] 10 ml FLUSH ASDIRECTED PRN ED Antiemetic Medication Reflex [OM.PC] Stat Peripheral IV Insertion Adult [OM.PC] Stat - Assessment/Plan Last 24 Hours: My Active Orders 05/18/21 16:16 Peripheral IV Care [RC] . DIRECTED Abdomen Pelvis w Cont [CT] Stat Sodium Chloride 0.9% [Saline Flush] 10 ml FLUSH ASDIRECTED PRN ED Antiemetic Medication Reflex [OM.PC] Stat Peripheral IV Insertion Adult [OM.PC] Stat
--- NOTE | 2021-05-19 07:13 | CT ---
CT abdomen and pelvis Technique: Multiple axial sections were obtained from above the dome of the diaphragm inferiorly through the pubic symphysis. Intravenous and oral contrast were utilized. Reconstructed coronal and sagittal images were also obtained. Comparison: No prior abdominal imaging is available. Findings: Visualized lung bases show nothing acute. Liver contains no focal parenchymal abnormality. Spleen size is normal. Adrenal glands show no nodule. Pancreas shows no abnormality. Gallbladder is not well seen. Kidneys show symmetric contrast enhancement. No hydronephrosis or mass is seen. Abdominal aorta shows no aneurysm. No retroperitoneal adenopathy or mesenteric abnormalities are seen. Appendix is seen which is normal. No pelvic mass or adenopathy is identified. Bone window settings were reviewed which show no acute osseous abnormality. Impression: 1. Nothing acute is seen on CT study of the abdomen and pelvis. Diagnostic code #1 I agree with preliminary report from [facility], finalized on 05/18/21, 7:01 PM CDT, code 1
== END 2021-05-18 18:48 | disposition home or self-care (01) ==
LOC: JD.ED 14:45
DX: R10.31 Right lower quadrant pain (principal); Z88.0 Allergy status to penicillin; Z88.8 Allergy status to other drugs, medicaments and biological substances; Z72.0 Tobacco use
CPT/HCPCS: 36415; 74177; 80053; 81001; 83690; 85025; 96374; 96375; 99284; J1170; J2405; J7030; Q9963; Q9967

== ENCOUNTER 2022-10-29 10:18 | Emergency (ER) | payer BC, OTHER ==
[2022-10-29] MEDS ORDERED: Ondansetron 4 MG Tab.DIS PO ONE (11:07)
[2022-10-29] MEDS ORDERED: Acetaminophen 325 MG Tab PO ONE (11:38)
== END 2022-10-29 13:37 | disposition home or self-care (01) ==
LOC: JD.ED 10:18
DX: S06.0X0A Concussion without loss of consciousness, initial encounter (principal); S01.112A Laceration without foreign body of left eyelid and periocular area, initial encounter; Z88.0 Allergy status to penicillin; Z88.1 Allergy status to other antibiotic agents; Z79.899 Other long term (current) drug therapy; W18.30XA Fall on same level, unspecified, initial encounter
CPT/HCPCS: 12011; 70450; 99283; A9270

== ENCOUNTER 2023-06-28 15:29 | Emergency (ER) | payer OTHER ==
[2023-06-28] MEDS ORDERED: HYDROmorphone 0.5 MG/0.5 ML Syringe IVPUSH ONE ×2 (16:06→17:45)
[2023-06-28] MEDS ORDERED: Ondansetron 4 MG/2 ML SDV IVPUSH ONE (16:06)
[2023-06-28] MEDS ORDERED: Ketorolac 30 MG/ML SDV IVPUSH ONE (16:06)
[2023-06-28] MEDS ORDERED: diphenhydrAMINE 50 MG/ML SDV IVPUSH ONE (16:06)
[2023-06-28] MEDS ORDERED: Sodium Chloride 0.9% 1,000 ML IV STA (16:06)
== END 2023-06-28 19:27 | disposition home or self-care (01) ==
LOC: JD.ED 15:29
DX: G43.909 Migraine, unspecified, not intractable, without status migrainosus (principal); Z87.891 Personal history of nicotine dependence; Z88.1 Allergy status to other antibiotic agents; Z88.0 Allergy status to penicillin
CPT/HCPCS: 70450; 96374; 96375; 96376; 99283; J1170; J1200; J1885; J2405; J7030; 99282